=== PATIENT | male | born 1940 | race African-American/Black ===

== ENCOUNTER 2022-01-08 17:45 | Inpatient (IN) ==
[2022-01-09] MEDS ORDERED: SODIUM CHLORIDE 0.9% 1,000 ML IV STA (00:05)
[2022-01-09 01:07] LABS: Basophils # 0.1 10*3/uL (0.0-0.2); Basophils % 0.7 % (0.0-0.8); Eosinophils % 0.6 % (0.00-10.9); Hemoglobin 10.3 GM/DL (14.0-18.0); Immature Granulocytes % 0.4 %; Immature Granulocytes Absolute 0.03 #; Lymphocytes # 1.2 10*3/uL (1.4-4.0); Lymphocytes % 16.5 % (21.2-54.2); Mean Corpuscular HGB Conc 31.2 GM/DL (32-36); Mean Corpuscular Volume 93.2 FL (87-102); Mean Platelet Volume 12.7 FL (9.6-12.0); Monocytes % 7.9 % (1.7-12.7); Neutrophils % 73.9 % (38.7-73.9); Platelet Count 239 T/CUMM (130-400); Red Blood Count 3.54 MC/CUMM (3.8-5.5); Red Cell Distribution Width 14.5 % (9.3-17.3); White Blood Count 7.1 T/CUMM (4-12)
[2022-01-09 01:27] LABS: Alanine Aminotransferase 25 U/L (16-61); Albumin 3.2 G/DL (3.4-5.0); Alkaline Phosphatase 64 U/L (45-117); Aspartate Amino Transferase 21 U/L (0-37); Blood Urea Nitrogen 26 MG/DL (7-18); Calcium 9.5 MG/DL (8.5-10.1); Carbon Dioxide 24 MMOL/L (21-32); Estimated Glom Filtration Rate 47 ML/MIN; Glucose 180 MG/DL (74-106); Osmolality,Calculated 284.7 MOS/KG (273-304); Potassium 4.5 MMOL/L (3.5-5.1); Sodium 138 MMOL/L (136-145); Total Protein 7.6 G/DL (6.4-8.2)
[2022-01-09 01:51] LABS: Platelet Estimate Adequate; Schistocytes 1+
[2022-01-09 02:09] LABS: Bilirubin,Urine Negative (Negative); Blood, Urine Moderate mg/dL (Negative); Glucose,Urine (UA) Negative (Negative); Ketones,Urine Negative (Negative); Mucus,Urine Occasional /LPF (Occasional); Nitrite,Urine Negative (Negative); Protein,Urine 100 MG/DL; RBC,Urine 12 /HPF (0-4); Squamous Epithelial Cell,Urine Occasional /HPF (0-10); Urine Appearance CLEAR (Clear); Urine Color Yellow (Yellow); Urine Specific Gravity 1.017 (1.001-1.035)
[2022-01-09 02:17] LABS: Barbiturates Screen,Urine Negative (Negative); Benzodiazepines Screen,Urine Negative (Negative); Cannabinoid Screen,Urine Negative (Negative); Opiate Screen,Urine Negative (Negative); Phencyclidine Screen,Urine Negative (Negative)
[2022-01-09] MEDS ORDERED: ONDANSETRON 4 MG/2 ML VIAL IV PRN (06:13)
[2022-01-09] MEDS ORDERED: ZALEPLON 5 MG CAPSULE PO PRN (08:10)
[2022-01-09] MEDS ORDERED: MAGNESIUM HYDROXIDE SUSP 30 ML UDCUP PO PRN (08:12)
[2022-01-09] MEDS: DOCUSATE SODIUM 100 MG CAPSULE PO SCH ×2 (08:42→22:11)
[2022-01-09] MEDS: PANTOPRAZOLE 40 MG TABLET PO SCH (08:42)
[2022-01-09] MEDS: QUEtiapine 25 MG TABLET PO SCH ×2 (08:44→22:11)
[2022-01-09] MEDS: ENALAPRIL 20 MG TABLET PO SCH (08:44)
[2022-01-09] MEDS: SODIUM CHLORIDE 0.9% 1,000 ML IV SCH ×2 (10:23→22:11)
[2022-01-09] MEDS: INSULIN LISPRO 100 UNIT/ML SUBCUT SCH ×3 (13:53→22:45)
[2022-01-09] MEDS ORDERED: LORazepam 2 MG/1 ML VIAL IV PRN (16:59)
[2022-01-09] MEDS ORDERED: HALOPERIDOL 5 MG/ML AMP IM PRN (16:59)
[2022-01-09] MEDS ORDERED: LORazepam 2 MG/1 ML VIAL IV ONE (20:00)
[2022-01-09] MEDS ORDERED: HALOPERIDOL 5 MG/ML AMP IM ONE (21:00)
[2022-01-09] MEDS: SIMVASTATIN 20 MG TABLET PO SCH (22:11)
[2022-01-10 06:04] LABS: Basophils % 0.4 % (0.0-0.8); Eosinophils # 0.2 10*3/uL (0.0-0.87); Eosinophils % 2.7 % (0.00-10.9); Immature Granulocytes % 0.3 %; Immature Granulocytes Absolute 0.02 #; Lymphocytes # 1.1 10*3/uL (1.4-4.0); Lymphocytes % 15.4 % (21.2-54.2); Mean Corpuscular HGB Conc 31.9 GM/DL (32-36); Mean Corpuscular Volume 91.5 FL (87-102); Monocytes % 9.8 % (1.7-12.7); Neutrophils % 71.4 % (38.7-73.9); Red Blood Count 2.84 MC/CUMM (3.8-5.5); Red Cell Distribution Width 14.5 % (9.3-17.3); White Blood Count 7.2 T/CUMM (4-12)
[2022-01-10 06:06] LABS: Hemoglobin 8.3 GM/DL (14.0-18.0); Platelet Count 175 T/CUMM (130-400)
[2022-01-10 06:18] LABS: Albumin 2.2 G/DL (3.4-5.0); Bilirubin,Total 2.4 MG/DL (0.20-1.00); Calcium 8.2 MG/DL (8.5-10.1); Free T4 (Free Thyroxine) 1.17 NG/DL (0.76-1.46); Potassium 4.5 MMOL/L (3.5-5.1); Thyroid Stimulating Hormone 2.79 uIU/ml (0.358-3.74); Total Protein 5.6 G/DL (6.4-8.2)
[2022-01-10 08:10] LABS: INR 1.1; PT Patient Result 11.8 SECS (10.5-12.0)
[2022-01-10] MEDS: PANTOPRAZOLE 40 MG TABLET PO SCH (08:39)
[2022-01-10] MEDS: ACETAMINOPHEN 325 MG TABLET PO PRN ×2 (08:39→21:17)
[2022-01-10] MEDS: DOCUSATE SODIUM 100 MG CAPSULE PO SCH ×2 (08:39→21:16)
[2022-01-10] MEDS: QUEtiapine 25 MG TABLET PO SCH ×2 (08:39→21:16)
[2022-01-10] MEDS: ENALAPRIL 20 MG TABLET PO SCH (08:40)
[2022-01-10] MEDS: INSULIN LISPRO 100 UNIT/ML SUBCUT SCH ×4 (08:40→20:35)
[2022-01-10] MEDS: MAGNESIUM SULF INJ 2 GM in SODIUM CHLORIDE 0.9% 1,000 ML IV SCH ×2 (12:37→21:16)
[2022-01-10 16:48] LABS: Lymphocytes,CSF 42 %; Monocytes,CSF 58 %
[2022-01-10 16:51] LABS: Red Blood Cell,CSF 5 C/CUMM
[2022-01-10 16:52] LABS: Appearance,CSF Clear; Glucose,CSF 90 MG/DL (40-70); White Blood Cell,CSF 5 C/CUMM
[2022-01-10] MEDS: SIMVASTATIN 20 MG TABLET PO SCH (21:16)
[2022-01-11 08:23] LABS: Basophils % 0.2 % (0.0-0.8); Eosinophils % 0.2 % (0.00-10.9); Hematocrit 28.8 VOL% (42.0-52.0); Hemoglobin 9.1 GM/DL (14.0-18.0); Immature Granulocytes % 1.2 %; Immature Granulocytes Absolute 0.22 #; Lymphocytes # 0.7 10*3/uL (1.4-4.0); Lymphocytes % 3.9 % (21.2-54.2); Mean Corpuscular HGB Conc 31.6 GM/DL (32-36); Mean Corpuscular Volume 91.7 FL (87-102); Neutrophils % 88.5 % (38.7-73.9); Platelet Count 214 T/CUMM (130-400); Red Blood Count 3.14 MC/CUMM (3.8-5.5); Red Cell Distribution Width 14.6 % (9.3-17.3); White Blood Count 18.1 T/CUMM (4-12)
[2022-01-11 08:45] LABS: Eosinophils 2 % (0-10); Hypochromia 1+; Lymphocytes 2 % (20-55); Microcytosis 1+; Platelet Estimate Adequate; Segmented Neutrophils 90 % (50-85); Total Cells Counted 100
[2022-01-11 08:55] LABS: Albumin 2.6 G/DL (3.4-5.0); Bilirubin,Total 0.6 MG/DL (0.20-1.00); Calcium 8.8 MG/DL (8.5-10.1); Osmolality,Calculated 284.8 MOS/KG (273-304); Potassium 4.3 MMOL/L (3.5-5.1)
[2022-01-11] MEDS: ACETAMINOPHEN 325 MG TABLET PO PRN (09:16)
[2022-01-11] MEDS: PANTOPRAZOLE 40 MG TABLET PO SCH (09:17)
[2022-01-11] MEDS: ENALAPRIL 20 MG TABLET PO SCH (09:17)
[2022-01-11] MEDS: QUEtiapine 25 MG TABLET PO SCH (09:17)
[2022-01-11] MEDS: INSULIN LISPRO 100 UNIT/ML SUBCUT SCH ×4 (09:18→21:23)
[2022-01-11] MEDS: DOCUSATE SODIUM 100 MG CAPSULE PO SCH ×2 (09:18→21:23)
[2022-01-11] MEDS: MAGNESIUM SULF INJ 2 GM in SODIUM CHLORIDE 0.9% 1,000 ML IV SCH ×2 (17:25→17:27)
[2022-01-11] MEDS: risperiDONE 0.5 MG TABLET PO SCH (21:23)
[2022-01-11] MEDS: SIMVASTATIN 20 MG TABLET PO SCH (21:23)
[2022-01-12] MEDS: MAGNESIUM SULF INJ 2 GM in SODIUM CHLORIDE 0.9% 1,000 ML IV SCH ×3 (01:12→23:22)
[2022-01-12] MEDS: DOCUSATE SODIUM 100 MG CAPSULE PO SCH ×2 (09:27→20:29)
[2022-01-12] MEDS: PANTOPRAZOLE 40 MG TABLET PO SCH (09:27)
[2022-01-12] MEDS: INSULIN LISPRO 100 UNIT/ML SUBCUT SCH ×4 (09:39→20:30)
[2022-01-12] MEDS ORDERED: SODIUM CHLORIDE 0.9% 500 ML IV ONE (12:09)
[2022-01-12] MEDS: risperiDONE 0.5 MG TABLET PO SCH (12:49)
[2022-01-12] MEDS: SIMVASTATIN 20 MG TABLET PO SCH (20:29)
[2022-01-13 06:32] LABS: Basophils % 0.2 % (0.0-0.8); Eosinophils # 0.1 10*3/uL (0.0-0.87); Eosinophils % 1.1 % (0.00-10.9); Hematocrit 26.9 VOL% (42.0-52.0); Hemoglobin 8.3 GM/DL (14.0-18.0); Immature Granulocytes % 0.6 %; Immature Granulocytes Absolute 0.06 #; Lymphocytes # 0.6 10*3/uL (1.4-4.0); Lymphocytes % 5.7 % (21.2-54.2); Mean Corpuscular HGB Conc 30.9 GM/DL (32-36); Mean Corpuscular Volume 91.8 FL (87-102); Mean Platelet Volume 13.9 FL (9.6-12.0); Monocytes % 9.2 % (1.7-12.7); Neutrophils % 83.2 % (38.7-73.9); Red Blood Count 2.93 MC/CUMM (3.8-5.5); Red Cell Distribution Width 14.6 % (9.3-17.3)
[2022-01-13 06:42] LABS: Platelet Count 165 T/CUMM (130-400); White Blood Count 10.2 T/CUMM (4-12)
[2022-01-13 06:43] LABS: Albumin 2.1 G/DL (3.4-5.0); Bilirubin,Total 1.7 MG/DL (0.20-1.00); Calcium 8.7 MG/DL (8.5-10.1); Osmolality,Calculated 294.4 MOS/KG (273-304); Potassium 4.5 MMOL/L (3.5-5.1); Total Protein 6.2 G/DL (6.4-8.2)
[2022-01-13] MEDS: INSULIN LISPRO 100 UNIT/ML SUBCUT SCH ×4 (08:51→20:22)
[2022-01-13] MEDS: PANTOPRAZOLE 40 MG TABLET PO SCH (08:52)
[2022-01-13] MEDS: DOCUSATE SODIUM 100 MG CAPSULE PO SCH ×2 (08:52→20:15)
[2022-01-13] MEDS: MAGNESIUM SULF INJ 2 GM in SODIUM CHLORIDE 0.9% 1,000 ML IV SCH ×2 (08:55→20:15)
[2022-01-13] MEDS: ENALAPRIL 20 MG TABLET PO SCH (09:18)
[2022-01-13] MEDS: risperiDONE 0.5 MG TABLET PO SCH ×2 (09:19→20:15)
[2022-01-13] MEDS: SIMVASTATIN 20 MG TABLET PO SCH (20:15)
[2022-01-14] MEDS: MAGNESIUM SULF INJ 2 GM in SODIUM CHLORIDE 0.9% 1,000 ML IV SCH (05:22)
[2022-01-14] MEDS: INSULIN LISPRO 100 UNIT/ML SUBCUT SCH ×4 (09:07→21:53)
[2022-01-14] MEDS: risperiDONE 0.5 MG TABLET PO SCH ×2 (09:07→21:52)
[2022-01-14] MEDS: PANTOPRAZOLE 40 MG TABLET PO SCH (09:07)
[2022-01-14] MEDS: ENALAPRIL 20 MG TABLET PO SCH (09:07)
[2022-01-14] MEDS: DOCUSATE SODIUM 100 MG CAPSULE PO SCH ×2 (09:07→21:53)
[2022-01-14 12:26] LABS: VDRL Spinal Fluid Negative (Negative)
[2022-01-14 13:31] LABS: West Nile Virus Ab, IgG, CSF Negative (Negative); West Nile Virus Ab, IgM, CSF Negative (Negative)
[2022-01-14] MEDS: SODIUM CHLORIDE 0.9% 1,000 ML IV SCH (13:54)
[2022-01-14] MEDS: SIMVASTATIN 20 MG TABLET PO SCH (21:52)
[2022-01-14] MEDS: APIXABAN 2.5 MG TABLET PO SCH (21:52)
[2022-01-15] MEDS: SODIUM CHLORIDE 0.9% 1,000 ML IV SCH (02:20)
[2022-01-15 06:19] LABS: Basophils % 0.3 % (0.0-0.8); Eosinophils # 0.1 10*3/uL (0.0-0.87); Eosinophils % 0.9 % (0.00-10.9); Hematocrit 25.9 VOL% (42.0-52.0); Hemoglobin 8.1 GM/DL (14.0-18.0); Immature Granulocytes % 0.7 %; Immature Granulocytes Absolute 0.05 #; Lymphocytes # 0.4 10*3/uL (1.4-4.0); Lymphocytes % 5.8 % (21.2-54.2); Mean Corpuscular HGB Conc 31.3 GM/DL (32-36); Mean Corpuscular Volume 91.2 FL (87-102); Mean Platelet Volume 13.6 FL (9.6-12.0); Monocytes % 10.7 % (1.7-12.7); Neutrophils % 81.6 % (38.7-73.9); Platelet Count 151 T/CUMM (130-400); Red Blood Count 2.84 MC/CUMM (3.8-5.5); Red Cell Distribution Width 14.6 % (9.3-17.3); White Blood Count 6.8 T/CUMM (4-12)
[2022-01-15 06:22] LABS: Bilirubin,Total 0.4 MG/DL (0.20-1.00); Calcium 8.7 MG/DL (8.5-10.1); Osmolality,Calculated 291.4 MOS/KG (273-304); Potassium 4.9 MMOL/L (3.5-5.1); Total Protein 6.3 G/DL (6.4-8.2)
[2022-01-15] MEDS: APIXABAN 2.5 MG TABLET PO SCH ×2 (09:33→20:25)
[2022-01-15] MEDS: DOCUSATE SODIUM 100 MG CAPSULE PO SCH ×2 (09:33→20:25)
[2022-01-15] MEDS: PANTOPRAZOLE 40 MG TABLET PO SCH (09:33)
[2022-01-15] MEDS: INSULIN LISPRO 100 UNIT/ML SUBCUT SCH ×4 (09:34→20:26)
[2022-01-15] MEDS: amLODIPine 5 MG TABLET PO SCH (09:34)
[2022-01-15] MEDS: SODIUM CHLORIDE 23.4% CONC INJ 38.5 MEQ, SODIUM BICARB INJ 100 MEQ in STERILE WATER INJ... IV SCH (12:57)
[2022-01-15] MEDS: ACETAMINOPHEN 325 MG TABLET PO PRN (16:40)
[2022-01-15] MEDS: SIMVASTATIN 20 MG TABLET PO SCH (20:25)
[2022-01-16 06:16] LABS: Basophils % 0.3 % (0.0-0.8); Eosinophils % 0.5 % (0.00-10.9); Hematocrit 28.1 VOL% (42.0-52.0); Hemoglobin 8.5 GM/DL (14.0-18.0); Immature Granulocytes % 1.1 %; Immature Granulocytes Absolute 0.07 #; Lymphocytes # 0.4 10*3/uL (1.4-4.0); Mean Corpuscular HGB Conc 30.2 GM/DL (32-36); Mean Platelet Volume 13.4 FL (9.6-12.0); Monocytes % 5.7 % (1.7-12.7); Neutrophils % 85.4 % (38.7-73.9); Platelet Count 108 T/CUMM (130-400); Red Blood Count 2.99 MC/CUMM (3.8-5.5); Red Cell Distribution Width 14.9 % (9.3-17.3); White Blood Count 6.2 T/CUMM (4-12)
[2022-01-16 06:29] LABS: Albumin 1.7 G/DL (3.4-5.0); Bilirubin,Total 0.4 MG/DL (0.20-1.00); Calcium 8.5 MG/DL (8.5-10.1); Osmolality,Calculated 288.8 MOS/KG (273-304); Potassium 5.6 MMOL/L (3.5-5.1); Total Protein 6.2 G/DL (6.4-8.2)
[2022-01-16] MEDS: amLODIPine 5 MG TABLET PO SCH (09:27)
[2022-01-16] MEDS: DOCUSATE SODIUM 100 MG CAPSULE PO SCH ×2 (09:27→20:45)
[2022-01-16] MEDS: APIXABAN 2.5 MG TABLET PO SCH ×2 (09:27→20:45)
[2022-01-16] MEDS: INSULIN LISPRO 100 UNIT/ML SUBCUT SCH ×4 (09:27→20:46)
[2022-01-16] MEDS: PANTOPRAZOLE 40 MG TABLET PO SCH (09:27)
[2022-01-16] MEDS: SODIUM CHLORIDE 0.9% 1,000 ML IV SCH (14:48)
[2022-01-16] MEDS: SODIUM CHLORIDE 23.4% CONC INJ 38.5 MEQ, SODIUM BICARB INJ 100 MEQ in STERILE WATER INJ... IV SCH (14:49)
[2022-01-16] MEDS: SODIUM BICARB INJ 150 MEQ in DEXTROSE 5% 850 ML IV SCH (16:36)
[2022-01-16] MEDS: ACETAMINOPHEN 325 MG TABLET PO PRN (20:45)
[2022-01-16] MEDS: TAMSULOSIN 0.4 MG CAPSULE PO SCH (20:45)
[2022-01-16] MEDS: SIMVASTATIN 20 MG TABLET PO SCH (20:45)
[2022-01-17 05:25] LABS: Basophils % 0.2 % (0.0-0.8); Eosinophils % 0.1 % (0.00-10.9); Hematocrit 22.3 VOL% (42.0-52.0); Hemoglobin 7.4 GM/DL (14.0-18.0); Immature Granulocytes % 0.6 %; Immature Granulocytes Absolute 0.07 #; Lymphocytes # 0.1 10*3/uL (1.4-4.0); Lymphocytes % 1.1 % (21.2-54.2); Mean Corpuscular HGB Conc 33.2 GM/DL (32-36); Mean Corpuscular Volume 85.8 FL (87-102); Mean Platelet Volume 13.3 FL (9.6-12.0); Monocytes % 2.7 % (1.7-12.7); Neutrophils % 95.3 % (38.7-73.9); Platelet Count 132 T/CUMM (130-400); Red Cell Distribution Width 14.5 % (9.3-17.3); White Blood Count 11.5 T/CUMM (4-12)
[2022-01-17 05:38] LABS: Calcium 7.8 MG/DL (8.5-10.1); Osmolality,Calculated 296.1 MOS/KG (273-304); Potassium 4.7 MMOL/L (3.5-5.1)
[2022-01-17 06:03] LABS: Band Neutrophils 9 % (0-10); Hypochromia Slight; Lymphocytes 1 % (20-55); Microcytosis Slight; Ovalocytes Slight; Platelet Estimate Adequate; Segmented Neutrophils 88 % (50-85); Total Cells Counted 100
[2022-01-17 08:06] LABS: Bacteria,Urine Many /HPF (Few); Mucus,Urine Occasional /LPF (Occasional); RBC,Urine 35 /HPF (0-4); Squamous Epithelial Cell,Urine Occasional /HPF (0-10)
[2022-01-17 08:07] LABS: Bilirubin,Urine Negative (Negative); Glucose,Urine (UA) Negative (Negative); Ketones,Urine Negative (Negative); Nitrite,Urine Negative (Negative); Protein,Urine 30 MG/DL; Urine Appearance Clear (Clear); Urine Color Yellow (Yellow); Urine Specific Gravity 1.015 (1.001-1.035)
[2022-01-17 08:08] LABS: Blood, Urine Large mg/dL (Negative); Urine Urobilinogen 0.2 EU/DL (<2.0)
[2022-01-17] MEDS: amLODIPine 5 MG TABLET PO SCH (09:16)
[2022-01-17] MEDS: INSULIN LISPRO 100 UNIT/ML SUBCUT SCH ×4 (09:16→21:10)
[2022-01-17] MEDS: DOCUSATE SODIUM 100 MG CAPSULE PO SCH ×2 (09:16→21:08)
[2022-01-17] MEDS: PANTOPRAZOLE 40 MG TABLET PO SCH (09:16)
[2022-01-17] MEDS: APIXABAN 2.5 MG TABLET PO SCH ×2 (09:16→21:08)
[2022-01-17] MEDS: SODIUM BICARB INJ 150 MEQ in DEXTROSE 5% 850 ML IV SCH (17:40)
[2022-01-17] MEDS: SIMVASTATIN 20 MG TABLET PO SCH (21:08)
[2022-01-17] MEDS: TAMSULOSIN 0.4 MG CAPSULE PO SCH (21:08)
[2022-01-17] MEDS ORDERED: cefTRIAXone 1,000 MG in SODIUM CHLORIDE 0.9% 100 ML IV ONE (23:45)
[2022-01-18 01:01] LABS: Basophils % 0.1 % (0.0-0.8); Eosinophils % 0.1 % (0.00-10.9); Hematocrit 23.6 VOL% (42.0-52.0); Hemoglobin 7.6 GM/DL (14.0-18.0); Immature Granulocytes % 1.1 %; Immature Granulocytes Absolute 0.19 #; Lymphocytes # 0.2 10*3/uL (1.4-4.0); Lymphocytes % 1.1 % (21.2-54.2); Mean Corpuscular HGB Conc 32.2 GM/DL (32-36); Mean Corpuscular Volume 88.7 FL (87-102); Mean Platelet Volume 13.3 FL (9.6-12.0); Monocytes % 2.5 % (1.7-12.7); Neutrophils % 95.1 % (38.7-73.9); Platelet Count 129 T/CUMM (130-400); Red Blood Count 2.66 MC/CUMM (3.8-5.5); Red Cell Distribution Width 14.6 % (9.3-17.3); White Blood Count 16.7 T/CUMM (4-12)
[2022-01-18 01:17] LABS: Calcium 8.3 MG/DL (8.5-10.1); Osmolality,Calculated 297.2 MOS/KG (273-304); Potassium 4.6 MMOL/L (3.5-5.1)
[2022-01-18 02:06] LABS: Lymphocytes 4 % (20-55); Platelet Estimate Adequate; Segmented Neutrophils 93 % (50-85); Total Cells Counted 100
[2022-01-18] MEDS: INSULIN LISPRO 100 UNIT/ML SUBCUT SCH ×4 (09:50→20:46)
[2022-01-18] MEDS: SODIUM BICARB INJ 150 MEQ in DEXTROSE 5% 850 ML IV SCH ×2 (09:50→20:50)
[2022-01-18] MEDS: amLODIPine 5 MG TABLET PO SCH (09:50)
[2022-01-18] MEDS: APIXABAN 2.5 MG TABLET PO SCH ×2 (09:50→20:46)
[2022-01-18] MEDS: PANTOPRAZOLE 40 MG TABLET PO SCH (09:50)
[2022-01-18] MEDS: DOCUSATE SODIUM 100 MG CAPSULE PO SCH ×2 (09:50→20:46)
[2022-01-18] MEDS: ACETAMINOPHEN 325 MG TABLET PO PRN ×3 (17:28→23:45)
[2022-01-18] MEDS: TAMSULOSIN 0.4 MG CAPSULE PO SCH (20:45)
[2022-01-18] MEDS: SIMVASTATIN 20 MG TABLET PO SCH (20:46)
[2022-01-18] MEDS ORDERED: cefTRIAXone 1,000 MG in SODIUM CHLORIDE 0.9% 100 ML IV SCH (21:00)
[2022-01-19] MEDS: ALBUMIN 25% 25 GM/100 ML VIAL IV SCH ×3 (02:00→18:10)
[2022-01-19] MEDS: METOPROLOL TARTRATE 25 MG TABLET PO SCH ×3 (02:00→21:57)
[2022-01-19] MEDS: SODIUM BICARB INJ 150 MEQ in DEXTROSE 5% 850 ML IV SCH ×2 (04:29→18:11)
[2022-01-19 05:48] LABS: Basophils % 0.2 % (0.0-0.8); Eosinophils % 0.2 % (0.00-10.9); Hematocrit 21.4 VOL% (42.0-52.0); Hemoglobin 7.1 GM/DL (14.0-18.0); Immature Granulocytes % 1.3 %; Immature Granulocytes Absolute 0.24 #; Lymphocytes # 0.4 10*3/uL (1.4-4.0); Lymphocytes % 2.4 % (21.2-54.2); Mean Corpuscular HGB Conc 33.2 GM/DL (32-36); Mean Corpuscular Volume 86.6 FL (87-102); Monocytes % 5.4 % (1.7-12.7); Neutrophils % 90.5 % (38.7-73.9); Platelet Count 94 T/CUMM (130-400); Red Blood Count 2.47 MC/CUMM (3.8-5.5); Red Cell Distribution Width 14.4 % (9.3-17.3)
[2022-01-19 06:08] LABS: Calcium 7.4 MG/DL (8.5-10.1); Osmolality,Calculated 288.7 MOS/KG (273-304); Potassium 4.3 MMOL/L (3.5-5.1)
[2022-01-19 06:39] LABS: Hypochromia 1+; Lymphocytes 2 % (20-55); Platelet Estimate Decreased; Segmented Neutrophils 95 % (50-85); Total Cells Counted 100
[2022-01-19 07:49] LABS: Albumin 1.1 G/DL (3.4-5.0); Bilirubin,Direct 0.19 MG/DL (0.0-0.20); Bilirubin,Indirect 0.4 MG/DL (0.0-1.0); Bilirubin,Total 0.6 MG/DL (0.20-1.00); Total Protein 4.9 G/DL (6.4-8.2)
[2022-01-19] MEDS: DOCUSATE SODIUM 100 MG CAPSULE PO SCH ×2 (08:30→23:19)
[2022-01-19] MEDS: FERROUS SULFATE 325 MG TABLET PO SCH ×2 (08:30→21:56)
[2022-01-19] MEDS: INSULIN LISPRO 100 UNIT/ML SUBCUT SCH ×4 (08:30→21:56)
[2022-01-19] MEDS: PANTOPRAZOLE 40 MG TABLET PO SCH (08:30)
[2022-01-19] MEDS: APIXABAN 2.5 MG TABLET PO SCH ×2 (08:30→21:56)
[2022-01-19] MEDS ORDERED: SODIUM CHLORIDE 0.9% 1,000 ML IV PRN (11:46)
[2022-01-19] MEDS ORDERED: FUROSEMIDE 20 MG/2 ML VIAL IV PRN (11:58)
[2022-01-19] MEDS: MEROPENEM 500 MG in SODIUM CHLORIDE 0.9% 100 ML IV SCH ×2 (12:30→21:29)
[2022-01-19] MEDS: INSULIN GLARGINE 100 UNIT/ML SUBCUT SCH (13:34)
[2022-01-19] MEDS: TAMSULOSIN 0.4 MG CAPSULE PO SCH (21:56)
[2022-01-19] MEDS: SIMVASTATIN 20 MG TABLET PO SCH (21:56)
[2022-01-19] MEDS: ACETAMINOPHEN 325 MG TABLET PO PRN (21:56)
[2022-01-20] MEDS: ALBUMIN 25% 25 GM/100 ML VIAL IV SCH ×3 (02:55→17:31)
[2022-01-20] MEDS: MEROPENEM 500 MG in SODIUM CHLORIDE 0.9% 100 ML IV SCH ×3 (04:03→22:16)
[2022-01-20 06:13] LABS: Basophils % 0.1 % (0.0-0.8); Eosinophils # 0.1 10*3/uL (0.0-0.87); Eosinophils % 0.5 % (0.00-10.9); Hematocrit 19.8 VOL% (42.0-52.0); Hemoglobin 6.8 GM/DL (14.0-18.0); Immature Granulocytes % 1.5 %; Immature Granulocytes Absolute 0.26 #; Lymphocytes # 0.7 10*3/uL (1.4-4.0); Lymphocytes % 4.1 % (21.2-54.2); Mean Corpuscular HGB Conc 34.3 GM/DL (32-36); Mean Corpuscular Volume 83.9 FL (87-102); Mean Platelet Volume 14.1 FL (9.6-12.0); Monocytes % 7.7 % (1.7-12.7); Neutrophils % 86.1 % (38.7-73.9); Platelet Count 133 T/CUMM (130-400); Red Blood Count 2.36 MC/CUMM (3.8-5.5); Red Cell Distribution Width 14.2 % (9.3-17.3); White Blood Count 17.2 T/CUMM (4-12)
[2022-01-20 06:55] LABS: Calcium 8.6 MG/DL (8.5-10.1); Osmolality,Calculated 288.7 MOS/KG (273-304); Potassium 3.9 MMOL/L (3.5-5.1)
[2022-01-20 06:58] LABS: Albumin 2.1 G/DL (3.4-5.0); Bilirubin,Direct 0.36 MG/DL (0.0-0.20); Bilirubin,Indirect 0.4 MG/DL (0.0-1.0); Bilirubin,Total 0.8 MG/DL (0.20-1.00); Total Protein 5.6 G/DL (6.4-8.2)
[2022-01-20] MEDS: SODIUM BICARB INJ 150 MEQ in DEXTROSE 5% 850 ML IV SCH (08:00)
[2022-01-20 08:02] LABS: Lymphocytes 5 % (20-55); Segmented Neutrophils 90 % (50-85); Total Cells Counted 100
[2022-01-20 08:03] LABS: Anisocytosis 1+; Hypochromia 3+; Platelet Estimate Adequate; Polychromasia Slight; Schistocytes Few; Target Cells 1+
[2022-01-20 08:04] LABS: Ovalocytes Few
[2022-01-20] MEDS: DOCUSATE SODIUM 100 MG CAPSULE PO SCH ×2 (09:01→22:17)
[2022-01-20] MEDS: INSULIN LISPRO 100 UNIT/ML SUBCUT SCH ×4 (09:02→22:16)
[2022-01-20] MEDS: METOPROLOL TARTRATE 25 MG TABLET PO SCH ×2 (09:02→22:18)
[2022-01-20] MEDS: FERROUS SULFATE 325 MG TABLET PO SCH ×2 (09:02→22:17)
[2022-01-20] MEDS: APIXABAN 2.5 MG TABLET PO SCH ×2 (09:02→22:18)
[2022-01-20] MEDS: PANTOPRAZOLE 40 MG TABLET PO SCH (09:02)
[2022-01-20] MEDS: INSULIN GLARGINE 100 UNIT/ML SUBCUT SCH (09:02)
[2022-01-20] MEDS ORDERED: SODIUM BICARB INJ 150 MEQ in DEXTROSE 5% 1,000 ML IV SCH (21:00)
[2022-01-20] MEDS: ACETAMINOPHEN 325 MG TABLET PO PRN (22:17)
[2022-01-20] MEDS: TAMSULOSIN 0.4 MG CAPSULE PO SCH (22:17)
[2022-01-20] MEDS: SIMVASTATIN 20 MG TABLET PO SCH (22:17)
[2022-01-21] MEDS: ALBUMIN 25% 25 GM/100 ML VIAL IV SCH ×3 (00:16→16:24)
[2022-01-21] MEDS: INSULIN LISPRO 100 UNIT/ML SUBCUT SCH ×4 (04:24→19:09)
[2022-01-21] MEDS: MEROPENEM 500 MG in SODIUM CHLORIDE 0.9% 100 ML IV SCH ×3 (04:25→20:07)
[2022-01-21] MEDS: SODIUM CHLORIDE 0.9% 1,000 ML IV SCH ×2 (04:27→15:07)
[2022-01-21 05:46] LABS: Basophils % 0.1 % (0.0-0.8); Hematocrit 25.8 VOL% (42.0-52.0); Hemoglobin 8.4 GM/DL (14.0-18.0); Immature Granulocytes % 3.2 %; Immature Granulocytes Absolute 0.67 #; Lymphocytes # 0.5 10*3/uL (1.4-4.0); Lymphocytes % 2.4 % (21.2-54.2); Mean Corpuscular HGB Conc 32.6 GM/DL (32-36); Mean Corpuscular Volume 87.5 FL (87-102); Mean Platelet Volume 14.5 FL (9.6-12.0); Monocytes % 7.5 % (1.7-12.7); Neutrophils % 86.8 % (38.7-73.9); Platelet Count 124 T/CUMM (130-400); Red Blood Count 2.95 MC/CUMM (3.8-5.5); Red Cell Distribution Width 14.5 % (9.3-17.3); White Blood Count 20.8 T/CUMM (4-12)
[2022-01-21 05:59] LABS: Albumin 2.9 G/DL (3.4-5.0); Bilirubin,Total 1.1 MG/DL (0.20-1.00); Calcium 8.7 MG/DL (8.5-10.1); Osmolality,Calculated 299.7 MOS/KG (273-304); Potassium 4.1 MMOL/L (3.5-5.1); Total Protein 6.2 G/DL (6.4-8.2)
[2022-01-21 06:13] LABS: Band Neutrophils 1 % (0-10); Hypochromia 2+; Lymphocytes 1 % (20-55); Segmented Neutrophils 93 % (50-85); Total Cells Counted 100
[2022-01-21 06:14] LABS: Microcytosis 1+; Ovalocytes Slight; Platelet Estimate Adequate; Target Cells Slight
[2022-01-21 06:20] LABS: Albumin 2.8 G/DL (3.4-5.0); Bilirubin,Direct 0.71 MG/DL (0.0-0.20); Bilirubin,Indirect 0.4 MG/DL (0.0-1.0); Bilirubin,Total 1.1 MG/DL (0.20-1.00); Total Protein 6.2 G/DL (6.4-8.2)
[2022-01-21] MEDS: INSULIN GLARGINE 100 UNIT/ML SUBCUT SCH (08:55)
[2022-01-21] MEDS: METOPROLOL TARTRATE 25 MG TABLET PO SCH ×2 (08:59→20:07)
[2022-01-21] MEDS: FERROUS SULFATE 325 MG TABLET PO SCH ×2 (08:59→20:07)
[2022-01-21] MEDS: PANTOPRAZOLE 40 MG TABLET PO SCH (08:59)
[2022-01-21] MEDS: DOCUSATE SODIUM 100 MG CAPSULE PO SCH ×2 (08:59→20:07)
[2022-01-21] MEDS: APIXABAN 2.5 MG TABLET PO SCH ×2 (08:59→20:07)
[2022-01-21] MEDS ORDERED: SUCCINYLCHOLINE 200 MG/10 ML VIAL ONE (12:54)
[2022-01-21] MEDS ORDERED: ETOMIDATE 20 MG/10 ML VIAL IV ONE ×2 (12:54→12:58)
[2022-01-21] MEDS ORDERED: SUCCINYLCHOLINE 200 MG/10 ML VIAL IV ONE (12:58)
[2022-01-21] MEDS ORDERED: SODIUM CHLORIDE 0.9% 1,000 ML IV ONE ×2 (13:03→14:21)
[2022-01-21] MEDS: MIDAZOLAM 100 MG in SODIUM CHLORIDE 0.9% 80 ML IV PRN (13:05)
[2022-01-21 14:00] LABS: ABG Base Excess 0.4 MMOL/L (-2.5-2.5); ABG HCO3 24.8 MMOL/L (20-26); ABG Oxygen Saturation 98.9 % (95-100); ABG PCO2 63.1 MM HG (35-48); ABG PH 7.262 (7.35-7.45); ABG TCO2 26.8 MMOL/L (23-27)
[2022-01-21] MEDS: SODIUM BICARB INJ 150 MEQ in DEXTROSE 5% 850 ML IV SCH (19:09)
[2022-01-21] MEDS: SIMVASTATIN 20 MG TABLET PO SCH (20:07)
[2022-01-21] MEDS: TAMSULOSIN 0.4 MG CAPSULE PO SCH (20:07)
[2022-01-21] MEDS: DEXTROSE 10% 250 ML IV PRN (20:08)
[2022-01-22] MEDS: SODIUM CHLORIDE 0.9% 1,000 ML IV SCH (00:04)
[2022-01-22] MEDS: INSULIN LISPRO 100 UNIT/ML SUBCUT SCH ×5 (00:04→23:51)
[2022-01-22] MEDS: ALBUMIN 25% 25 GM/100 ML VIAL IV SCH ×3 (00:21→17:10)
[2022-01-22] MEDS: DEXTROSE 5% NACL 0.9% 1,000 ML IV SCH ×3 (03:50→19:36)
[2022-01-22 04:12] LABS: ABG Base Excess 4.1 MMOL/L (-2.5-2.5); ABG HCO3 28.1 MMOL/L (20-26); ABG Oxygen Saturation 99.5 % (95-100); ABG PCO2 34.9 MM HG (35-48); ABG PH 7.502 (7.35-7.45); ABG TCO2 25.6 MMOL/L (23-27)
[2022-01-22 04:21] LABS: Basophils % 0.1 % (0.0-0.8); Eosinophils # 0.1 10*3/uL (0.0-0.87); Eosinophils % 0.4 % (0.00-10.9); Hematocrit 21.9 VOL% (42.0-52.0); Hemoglobin 7.2 GM/DL (14.0-18.0); Immature Granulocytes % 1.4 %; Immature Granulocytes Absolute 0.24 #; Lymphocytes # 0.6 10*3/uL (1.4-4.0); Lymphocytes % 3.4 % (21.2-54.2); Mean Corpuscular HGB Conc 32.9 GM/DL (32-36); Mean Corpuscular Volume 85.5 FL (87-102); Mean Platelet Volume 13.4 FL (9.6-12.0); Monocytes % 5.9 % (1.7-12.7); Neutrophils % 88.8 % (38.7-73.9); Platelet Count 128 T/CUMM (130-400); Red Blood Count 2.56 MC/CUMM (3.8-5.5); Red Cell Distribution Width 14.5 % (9.3-17.3); White Blood Count 16.9 T/CUMM (4-12)
[2022-01-22 04:32] LABS: Calcium 7.9 MG/DL (8.5-10.1); Osmolality,Calculated 286.4 MOS/KG (273-304); Potassium 4.2 MMOL/L (3.5-5.1)
[2022-01-22] MEDS: DEXTROSE 10% 250 ML IV PRN (04:40)
[2022-01-22 04:41] LABS: Lymphocytes 7 % (20-55); Segmented Neutrophils 90 % (50-85); Total Cells Counted 100
[2022-01-22 04:42] LABS: Hypochromia 1+; Microcytosis 1+; Ovalocytes Slight
[2022-01-22] MEDS: MEROPENEM 500 MG in SODIUM CHLORIDE 0.9% 100 ML IV SCH ×3 (05:03→20:53)
[2022-01-22] MEDS: methylPREDNISolone SOD SUC 40 MG/1 ML VIAL IV SCH ×2 (08:41→19:36)
[2022-01-22] MEDS: DOCUSATE SODIUM 100 MG CAPSULE PO SCH ×2 (08:42→20:53)
[2022-01-22] MEDS: PANTOPRAZOLE 40 MG VIAL IV SCH (08:42)
[2022-01-22] MEDS: FERROUS SULFATE 325 MG TABLET PO SCH ×2 (08:42→20:53)
[2022-01-22] MEDS: APIXABAN 2.5 MG TABLET PO SCH ×2 (08:42→20:53)
[2022-01-22] MEDS: INSULIN GLARGINE 100 UNIT/ML SUBCUT SCH (08:42)
[2022-01-22] MEDS: METOPROLOL TARTRATE 25 MG TABLET PO SCH ×2 (08:43→20:53)
[2022-01-22] MEDS ORDERED: GLUCAGON 1 MG VIAL IM PRN (14:02)
[2022-01-22] MEDS ORDERED: DEXTROSE 50% 25 GM/50 ML VIAL IV PRN (14:02)
[2022-01-22] MEDS: MIDAZOLAM 100 MG in SODIUM CHLORIDE 0.9% 80 ML IV PRN (14:38)
[2022-01-22] MEDS: SKIN HEALING OINT (AQUAPHOR) 50 GM TUBE TOP SCH (16:51)
[2022-01-22] MEDS: TAMSULOSIN 0.4 MG CAPSULE PO SCH (20:53)
[2022-01-22] MEDS: SIMVASTATIN 20 MG TABLET PO SCH (20:54)
[2022-01-22] MEDS: LATANOPROST 0.005% OPH SOLN 2.5 ML BOTTLE BOTH EYES SCH (20:54)
[2022-01-23] MEDS: ALBUMIN 25% 25 GM/100 ML VIAL IV SCH ×3 (01:18→17:17)
[2022-01-23] MEDS: DEXTROSE 5% NACL 0.9% 1,000 ML IV SCH ×3 (03:41→18:50)
[2022-01-23 04:43] LABS: ABG Base Excess 2.3 MMOL/L (-2.5-2.5); ABG HCO3 26.5 MMOL/L (20-26); ABG PCO2 36.8 MM HG (35-48); ABG PH 7.459 (7.35-7.45); ABG TCO2 24.5 MMOL/L (23-27)
[2022-01-23 04:57] LABS: Calcium 8.4 MG/DL (8.5-10.1); Osmolality,Calculated 296.2 MOS/KG (273-304); Potassium 4.2 MMOL/L (3.5-5.1)
[2022-01-23 04:58] LABS: Basophils % 0.1 % (0.0-0.8); Hematocrit 22.5 VOL% (42.0-52.0); Hemoglobin 7.6 GM/DL (14.0-18.0); Immature Granulocytes % 1.5 %; Immature Granulocytes Absolute 0.27 #; Lymphocytes # 0.3 10*3/uL (1.4-4.0); Lymphocytes % 1.7 % (21.2-54.2); Mean Corpuscular HGB Conc 33.8 GM/DL (32-36); Mean Corpuscular Volume 85.2 FL (87-102); Mean Platelet Volume 13.8 FL (9.6-12.0); Monocytes % 2.1 % (1.7-12.7); Neutrophils % 94.6 % (38.7-73.9); Platelet Count 120 T/CUMM (130-400); Red Blood Count 2.64 MC/CUMM (3.8-5.5); Red Cell Distribution Width 14.5 % (9.3-17.3); White Blood Count 18.3 T/CUMM (4-12)
[2022-01-23] MEDS: MEROPENEM 500 MG in SODIUM CHLORIDE 0.9% 100 ML IV SCH ×3 (05:09→20:07)
[2022-01-23 05:23] LABS: Hypochromia 1+; Lymphocytes 1 % (20-55); Microcytosis 1+; Segmented Neutrophils 98 % (50-85); Target Cells Slight; Total Cells Counted 100
[2022-01-23 05:24] LABS: Ovalocytes Slight; Platelet Estimate Adequate
[2022-01-23] MEDS: INSULIN LISPRO 100 UNIT/ML SUBCUT SCH ×3 (05:51→17:23)
[2022-01-23] MEDS: methylPREDNISolone SOD SUC 40 MG/1 ML VIAL IV SCH ×2 (08:34→19:41)
[2022-01-23] MEDS: PANTOPRAZOLE 40 MG VIAL IV SCH (08:35)
[2022-01-23] MEDS: APIXABAN 2.5 MG TABLET PO SCH ×2 (08:35→20:06)
[2022-01-23] MEDS: DOCUSATE SODIUM 100 MG CAPSULE PO SCH ×2 (08:35→20:06)
[2022-01-23] MEDS: FERROUS SULFATE 325 MG TABLET PO SCH ×2 (08:35→20:06)
[2022-01-23] MEDS: METOPROLOL TARTRATE 25 MG TABLET PO SCH ×2 (08:35→20:06)
[2022-01-23] MEDS: SKIN HEALING OINT (AQUAPHOR) 50 GM TUBE TOP SCH (08:35)
[2022-01-23] MEDS: MIDAZOLAM 100 MG in SODIUM CHLORIDE 0.9% 80 ML IV PRN (13:15)
[2022-01-23] MEDS: TAMSULOSIN 0.4 MG CAPSULE PO SCH (20:06)
[2022-01-23] MEDS: SIMVASTATIN 20 MG TABLET PO SCH (20:06)
[2022-01-23] MEDS: LATANOPROST 0.005% OPH SOLN 2.5 ML BOTTLE BOTH EYES SCH (20:06)
[2022-01-24] MEDS: INSULIN LISPRO 100 UNIT/ML SUBCUT SCH ×4 (00:20→18:20)
[2022-01-24] MEDS: ALBUMIN 25% 25 GM/100 ML VIAL IV SCH (00:20)
[2022-01-24] MEDS: DEXTROSE 5% NACL 0.9% 1,000 ML IV SCH (02:52)
[2022-01-24 03:27] LABS: ABG Base Excess 0.6 MMOL/L (-2.5-2.5); ABG Oxygen Saturation 98.5 % (95-100); ABG PCO2 37.6 MM HG (35-48); ABG PH 7.428 (7.35-7.45); ABG TCO2 23.2 MMOL/L (23-27)
[2022-01-24 03:36] LABS: Basophils % 0.1 % (0.0-0.8); Hematocrit 23.7 VOL% (42.0-52.0); Hemoglobin 7.9 GM/DL (14.0-18.0); Immature Granulocytes % 1.7 %; Immature Granulocytes Absolute 0.37 #; Lymphocytes # 0.2 10*3/uL (1.4-4.0); Lymphocytes % 1.1 % (21.2-54.2); Mean Corpuscular HGB Conc 33.3 GM/DL (32-36); Mean Corpuscular Volume 85.3 FL (87-102); Mean Platelet Volume 13.3 FL (9.6-12.0); Monocytes % 2.7 % (1.7-12.7); Neutrophils % 94.4 % (38.7-73.9); Platelet Count 162 T/CUMM (130-400); Red Blood Count 2.78 MC/CUMM (3.8-5.5); Red Cell Distribution Width 14.6 % (9.3-17.3); White Blood Count 21.9 T/CUMM (4-12)
[2022-01-24 03:47] LABS: Calcium 8.3 MG/DL (8.5-10.1); Potassium 4.3 MMOL/L (3.5-5.1)
[2022-01-24 03:59] LABS: Hypochromia 1+; Lymphocytes 1 % (20-55); Microcytosis 1+; Platelet Estimate Adequate; Segmented Neutrophils 98 % (50-85); Total Cells Counted 100
[2022-01-24] MEDS: MEROPENEM 500 MG in SODIUM CHLORIDE 0.9% 100 ML IV SCH ×3 (04:04→20:54)
[2022-01-24] MEDS: SKIN HEALING OINT (AQUAPHOR) 50 GM TUBE TOP SCH (09:02)
[2022-01-24] MEDS: FERROUS SULFATE 325 MG TABLET PO SCH ×2 (09:02→20:53)
[2022-01-24] MEDS: DOCUSATE SODIUM 100 MG CAPSULE PO SCH ×2 (09:02→20:53)
[2022-01-24] MEDS: PANTOPRAZOLE 40 MG VIAL IV SCH (09:02)
[2022-01-24] MEDS: METOPROLOL TARTRATE 25 MG TABLET PO SCH ×2 (09:02→20:52)
[2022-01-24] MEDS: APIXABAN 2.5 MG TABLET PO SCH ×2 (09:02→20:53)
[2022-01-24] MEDS: methylPREDNISolone SOD SUC 40 MG/1 ML VIAL IV SCH ×2 (09:06→20:09)
[2022-01-24] MEDS ORDERED: FUROSEMIDE 40 MG/4 ML VIAL IV ONE (09:28)
[2022-01-24] MEDS: MIDAZOLAM 100 MG in SODIUM CHLORIDE 0.9% 80 ML IV PRN ×2 (09:31→21:52)
[2022-01-24] MEDS: TAMSULOSIN 0.4 MG CAPSULE PO SCH (20:52)
[2022-01-24] MEDS: SIMVASTATIN 20 MG TABLET PO SCH (20:52)
[2022-01-24] MEDS: LATANOPROST 0.005% OPH SOLN 2.5 ML BOTTLE BOTH EYES SCH (21:48)
[2022-01-25] MEDS: INSULIN LISPRO 100 UNIT/ML SUBCUT SCH ×4 (00:21→18:46)
[2022-01-25] MEDS: MEROPENEM 500 MG in SODIUM CHLORIDE 0.9% 100 ML IV SCH ×3 (04:32→20:03)
[2022-01-25 04:33] LABS: ABG Base Excess 1.7 MMOL/L (-2.5-2.5); ABG Oxygen Saturation 99.1 % (95-100); ABG PCO2 38.3 MM HG (35-48); ABG PH 7.438 (7.35-7.45)
[2022-01-25 04:34] LABS: Basophils % 0.1 % (0.0-0.8); Hematocrit 25.3 VOL% (42.0-52.0); Hemoglobin 8.4 GM/DL (14.0-18.0); Immature Granulocytes % 2.3 %; Immature Granulocytes Absolute 0.53 #; Lymphocytes # 0.3 10*3/uL (1.4-4.0); Lymphocytes % 1.5 % (21.2-54.2); Mean Corpuscular HGB Conc 33.2 GM/DL (32-36); Mean Corpuscular Volume 87.5 FL (87-102); Mean Platelet Volume 12.8 FL (9.6-12.0); Monocytes % 3.6 % (1.7-12.7); Neutrophils % 92.5 % (38.7-73.9); Platelet Count 164 T/CUMM (130-400); Red Blood Count 2.89 MC/CUMM (3.8-5.5); White Blood Count 22.9 T/CUMM (4-12)
[2022-01-25 05:01] LABS: Calcium 8.2 MG/DL (8.5-10.1); Osmolality,Calculated 310.5 MOS/KG (273-304); Potassium 4.5 MMOL/L (3.5-5.1)
[2022-01-25 05:25] LABS: Anisocytosis 1+; Lymphocytes 1 % (20-55); Macrocytosis 1+; Myelocytes 1 %; Platelet Estimate Normal; Segmented Neutrophils 93 % (50-85); Total Cells Counted 100
[2022-01-25] MEDS: PANTOPRAZOLE 40 MG VIAL IV SCH (08:26)
[2022-01-25] MEDS: DOCUSATE SODIUM 100 MG CAPSULE PO SCH ×2 (08:27→20:04)
[2022-01-25] MEDS: METOPROLOL TARTRATE 25 MG TABLET PO SCH ×2 (08:27→20:04)
[2022-01-25] MEDS: APIXABAN 2.5 MG TABLET PO SCH ×2 (08:27→20:04)
[2022-01-25] MEDS: FERROUS SULFATE 325 MG TABLET PO SCH ×2 (08:27→20:04)
[2022-01-25] MEDS: methylPREDNISolone SOD SUC 40 MG/1 ML VIAL IV SCH ×2 (08:27→20:04)
[2022-01-25] MEDS: MIDAZOLAM 100 MG in SODIUM CHLORIDE 0.9% 80 ML IV PRN ×2 (08:54→23:10)
[2022-01-25] MEDS: SKIN HEALING OINT (AQUAPHOR) 50 GM TUBE TOP SCH (10:23)
[2022-01-25] MEDS ORDERED: SODIUM BICARBONATE 50 MEQ/50 ML VIAL IV PRN (15:22)
[2022-01-25] MEDS ORDERED: SODIUM CHLORIDE 0.9% 500 ML IV ONE (15:34)
[2022-01-25] MEDS: LATANOPROST 0.005% OPH SOLN 2.5 ML BOTTLE BOTH EYES SCH (20:03)
[2022-01-25] MEDS: TAMSULOSIN 0.4 MG CAPSULE PO SCH (20:04)
[2022-01-25] MEDS: SIMVASTATIN 20 MG TABLET PO SCH (20:04)
[2022-01-26] MEDS: INSULIN LISPRO 100 UNIT/ML SUBCUT SCH ×5 (00:23→23:49)
[2022-01-26 03:16] LABS: ABG Base Excess 2.7 MMOL/L (-2.5-2.5); ABG HCO3 26.8 MMOL/L (20-26); ABG PCO2 38.1 MM HG (35-48); ABG PH 7.453 (7.35-7.45); ABG PO2 97.8 MM HG (80-95); ABG TCO2 24.5 MMOL/L (23-27)
[2022-01-26 03:25] LABS: Basophils % 0.1 % (0.0-0.8); Hemoglobin 8.9 GM/DL (14.0-18.0); Immature Granulocytes % 1.9 %; Immature Granulocytes Absolute 0.41 #; Lymphocytes # 0.3 10*3/uL (1.4-4.0); Lymphocytes % 1.6 % (21.2-54.2); Mean Corpuscular HGB Conc 31.8 GM/DL (32-36); Mean Corpuscular Volume 88.1 FL (87-102); Mean Platelet Volume 13.6 FL (9.6-12.0); Monocytes % 2.6 % (1.7-12.7); Neutrophils % 93.8 % (38.7-73.9); Platelet Count 169 T/CUMM (130-400); Red Blood Count 3.18 MC/CUMM (3.8-5.5); Red Cell Distribution Width 15.1 % (9.3-17.3); White Blood Count 21.1 T/CUMM (4-12)
[2022-01-26 03:38] LABS: Calcium 8.3 MG/DL (8.5-10.1); Osmolality,Calculated 312.4 MOS/KG (273-304); Potassium 4.8 MMOL/L (3.5-5.1)
[2022-01-26] MEDS: MEROPENEM 500 MG in SODIUM CHLORIDE 0.9% 100 ML IV SCH ×3 (04:03→20:20)
[2022-01-26] MEDS: PANTOPRAZOLE 40 MG VIAL IV SCH (08:37)
[2022-01-26] MEDS: DOCUSATE SODIUM 100 MG CAPSULE PO SCH ×2 (08:37→20:20)
[2022-01-26] MEDS: APIXABAN 2.5 MG TABLET PO SCH ×2 (08:37→20:20)
[2022-01-26] MEDS: methylPREDNISolone SOD SUC 40 MG/1 ML VIAL IV SCH ×2 (08:37→20:20)
[2022-01-26] MEDS: FERROUS SULFATE 325 MG TABLET PO SCH ×2 (08:38→20:20)
[2022-01-26] MEDS: METOPROLOL TARTRATE 25 MG TABLET PO SCH ×2 (08:38→20:20)
[2022-01-26] MEDS: SKIN HEALING OINT (AQUAPHOR) 50 GM TUBE TOP SCH (08:57)
[2022-01-26] MEDS: MICAFUNGIN 100 MG in SODIUM CHLORIDE 0.9% 100 ML IV SCH (18:27)
[2022-01-26] MEDS: SIMVASTATIN 20 MG TABLET PO SCH (20:20)
[2022-01-26] MEDS: TAMSULOSIN 0.4 MG CAPSULE PO SCH (20:20)
[2022-01-26] MEDS: LATANOPROST 0.005% OPH SOLN 2.5 ML BOTTLE BOTH EYES SCH (20:21)
[2022-01-27 03:41] LABS: Basophils % 0.1 % (0.0-0.8); Hematocrit 29.6 VOL% (42.0-52.0); Hemoglobin 9.4 GM/DL (14.0-18.0); Immature Granulocytes % 2.1 %; Immature Granulocytes Absolute 0.46 #; Lymphocytes # 0.4 10*3/uL (1.4-4.0); Lymphocytes % 1.7 % (21.2-54.2); Mean Corpuscular HGB Conc 31.8 GM/DL (32-36); Mean Corpuscular Volume 88.6 FL (87-102); Monocytes % 3.3 % (1.7-12.7); Neutrophils % 92.8 % (38.7-73.9); Platelet Count 167 T/CUMM (130-400); Red Blood Count 3.34 MC/CUMM (3.8-5.5); Red Cell Distribution Width 15.1 % (9.3-17.3); White Blood Count 22.1 T/CUMM (4-12)
[2022-01-27 03:56] LABS: Calcium 8.7 MG/DL (8.5-10.1); Osmolality,Calculated 310.5 MOS/KG (273-304)
[2022-01-27 04:12] LABS: Band Neutrophils 1 % (0-10); Hypochromia 1+; Lymphocytes 2 % (20-55); Microcytosis 1+; Platelet Estimate Adequate; Segmented Neutrophils 92 % (50-85); Total Cells Counted 100
[2022-01-27] MEDS: MEROPENEM 500 MG in SODIUM CHLORIDE 0.9% 100 ML IV SCH ×3 (04:15→21:27)
[2022-01-27 04:34] LABS: ABG Base Excess 1.7 MMOL/L (-2.5-2.5); ABG HCO3 25.1 MMOL/L (20-26); ABG PCO2 34.8 MM HG (35-48); ABG PH 7.476 (7.35-7.45); ABG PO2 63.8 MM HG (80-95); ABG TCO2 26.2 MMOL/L (23-27)
[2022-01-27] MEDS: PANTOPRAZOLE 40 MG VIAL IV SCH (08:24)
[2022-01-27] MEDS: methylPREDNISolone SOD SUC 40 MG/1 ML VIAL IV SCH ×2 (08:24→21:24)
[2022-01-27] MEDS: FERROUS SULFATE 325 MG TABLET PO SCH ×2 (08:25→21:30)
[2022-01-27] MEDS: INSULIN LISPRO 100 UNIT/ML SUBCUT SCH ×4 (08:25→21:21)
[2022-01-27] MEDS: APIXABAN 2.5 MG TABLET PO SCH ×2 (08:25→21:30)
[2022-01-27] MEDS: METOPROLOL TARTRATE 25 MG TABLET PO SCH ×2 (08:25→21:30)
[2022-01-27] MEDS: SKIN HEALING OINT (AQUAPHOR) 50 GM TUBE TOP SCH (08:25)
[2022-01-27] MEDS: DOCUSATE SODIUM 100 MG CAPSULE PO SCH ×2 (08:26→21:30)
[2022-01-27] MEDS: FUROSEMIDE 40 MG/4 ML VIAL IV SCH ×2 (08:29→17:56)
[2022-01-27] MEDS: INSULIN GLARGINE 100 UNIT/ML SUBCUT SCH (08:30)
[2022-01-27] MEDS: MICAFUNGIN 100 MG in SODIUM CHLORIDE 0.9% 100 ML IV SCH (19:07)
[2022-01-27] MEDS: LATANOPROST 0.005% OPH SOLN 2.5 ML BOTTLE BOTH EYES SCH (21:29)
[2022-01-27] MEDS: SIMVASTATIN 20 MG TABLET PO SCH (21:30)
[2022-01-27] MEDS: TAMSULOSIN 0.4 MG CAPSULE PO SCH (21:31)
[2022-01-28 04:02] LABS: ABG Base Excess 5.5 MMOL/L (-2.5-2.5); ABG HCO3 29.4 MMOL/L (20-26); ABG Oxygen Saturation 96.3 % (95-100); ABG PCO2 39.3 MM HG (35-48); ABG PH 7.481 (7.35-7.45); ABG PO2 79.7 MM HG (80-95); ABG TCO2 26.4 MMOL/L (23-27)
[2022-01-28] MEDS: MEROPENEM 500 MG in SODIUM CHLORIDE 0.9% 100 ML IV SCH ×3 (04:35→21:12)
[2022-01-28 05:46] LABS: Basophils % 0.1 % (0.0-0.8); Hematocrit 28.1 VOL% (42.0-52.0); Immature Granulocytes % 1.5 %; Immature Granulocytes Absolute 0.36 #; Lymphocytes # 0.5 10*3/uL (1.4-4.0); Lymphocytes % 2.1 % (21.2-54.2); Mean Corpuscular Volume 88.4 FL (87-102); Mean Platelet Volume 13.8 FL (9.6-12.0); Monocytes % 2.7 % (1.7-12.7); Neutrophils % 93.6 % (38.7-73.9); Platelet Count 157 T/CUMM (130-400); Red Blood Count 3.18 MC/CUMM (3.8-5.5); Red Cell Distribution Width 15.3 % (9.3-17.3); White Blood Count 24.2 T/CUMM (4-12)
[2022-01-28 05:59] LABS: Calcium 8.9 MG/DL (8.5-10.1); Osmolality,Calculated 308.5 MOS/KG (273-304)
[2022-01-28 06:16] LABS: Hypochromia 1+; Lymphocytes 2 % (20-55); Microcytosis 1+; Platelet Estimate Adequate; Segmented Neutrophils 96 % (50-85); Total Cells Counted 100
[2022-01-28] MEDS: INSULIN LISPRO 100 UNIT/ML SUBCUT SCH ×4 (09:26→21:11)
[2022-01-28] MEDS: INSULIN GLARGINE 100 UNIT/ML SUBCUT SCH (09:27)
[2022-01-28] MEDS: FUROSEMIDE 40 MG/4 ML VIAL IV SCH (09:28)
[2022-01-28] MEDS: methylPREDNISolone SOD SUC 40 MG/1 ML VIAL IV SCH ×2 (09:28→21:11)
[2022-01-28] MEDS: METOPROLOL TARTRATE 25 MG TABLET PO SCH ×2 (09:29→21:10)
[2022-01-28] MEDS: PANTOPRAZOLE 40 MG VIAL IV SCH (09:29)
[2022-01-28] MEDS: SKIN HEALING OINT (AQUAPHOR) 50 GM TUBE TOP SCH (09:29)
[2022-01-28] MEDS: APIXABAN 2.5 MG TABLET PO SCH ×2 (09:29→21:10)
[2022-01-28] MEDS: DOCUSATE SODIUM 100 MG CAPSULE PO SCH ×2 (09:29→21:10)
[2022-01-28] MEDS: FERROUS SULFATE 325 MG TABLET PO SCH ×2 (09:29→21:10)
[2022-01-28] MEDS: MICAFUNGIN 100 MG in SODIUM CHLORIDE 0.9% 100 ML IV SCH (17:37)
[2022-01-28] MEDS: SIMVASTATIN 20 MG TABLET PO SCH (21:10)
[2022-01-28] MEDS: TAMSULOSIN 0.4 MG CAPSULE PO SCH (21:11)
[2022-01-28] MEDS: LATANOPROST 0.005% OPH SOLN 2.5 ML BOTTLE BOTH EYES SCH (21:53)
[2022-01-29] MEDS: MEROPENEM 500 MG in SODIUM CHLORIDE 0.9% 100 ML IV SCH ×3 (05:30→20:28)
[2022-01-29 06:14] LABS: Basophils % 0.1 % (0.0-0.8); Eosinophils % 0.1 % (0.00-10.9); Hematocrit 27.4 VOL% (42.0-52.0); Hemoglobin 8.8 GM/DL (14.0-18.0); Immature Granulocytes % 1.5 %; Immature Granulocytes Absolute 0.35 #; Lymphocytes # 0.8 10*3/uL (1.4-4.0); Lymphocytes % 3.2 % (21.2-54.2); Mean Corpuscular HGB Conc 32.1 GM/DL (32-36); Mean Corpuscular Volume 89.5 FL (87-102); Mean Platelet Volume 13.3 FL (9.6-12.0); Monocytes % 3.8 % (1.7-12.7); Neutrophils % 91.3 % (38.7-73.9); Platelet Count 164 T/CUMM (130-400); Red Blood Count 3.06 MC/CUMM (3.8-5.5); Red Cell Distribution Width 15.9 % (9.3-17.3); White Blood Count 23.7 T/CUMM (4-12)
[2022-01-29 06:23] LABS: Calcium 8.7 MG/DL (8.5-10.1); Osmolality,Calculated 298.7 MOS/KG (273-304); Potassium 5.1 MMOL/L (3.5-5.1)
[2022-01-29 06:32] LABS: Hypochromia 1+; Lymphocytes 3 % (20-55); Microcytosis 1+; Segmented Neutrophils 95 % (50-85); Total Cells Counted 100
[2022-01-29 06:33] LABS: Anisocytosis 1+; Platelet Estimate Adequate
[2022-01-29] MEDS: INSULIN LISPRO 100 UNIT/ML SUBCUT SCH ×4 (08:54→20:29)
[2022-01-29] MEDS: INSULIN GLARGINE 100 UNIT/ML SUBCUT SCH (12:14)
[2022-01-29] MEDS: APIXABAN 2.5 MG TABLET PO SCH ×2 (12:15→20:27)
[2022-01-29] MEDS: DOCUSATE SODIUM 100 MG CAPSULE PO SCH ×2 (12:16→20:28)
[2022-01-29] MEDS: SKIN HEALING OINT (AQUAPHOR) 50 GM TUBE TOP SCH (12:16)
[2022-01-29] MEDS: FERROUS SULFATE 325 MG TABLET PO SCH ×2 (12:16→20:28)
[2022-01-29] MEDS: METOPROLOL TARTRATE 25 MG TABLET PO SCH ×2 (12:17→20:28)
[2022-01-29] MEDS: MICAFUNGIN 100 MG in SODIUM CHLORIDE 0.9% 100 ML IV SCH (12:20)
[2022-01-29] MEDS: TAMSULOSIN 0.4 MG CAPSULE PO SCH (20:28)
[2022-01-29] MEDS: SIMVASTATIN 20 MG TABLET PO SCH (20:28)
[2022-01-29] MEDS: LATANOPROST 0.005% OPH SOLN 2.5 ML BOTTLE BOTH EYES SCH (20:29)
[2022-01-30 05:27] LABS: Basophils % 0.1 % (0.0-0.8); Eosinophils # 0.3 10*3/uL (0.0-0.87); Eosinophils % 1.6 % (0.00-10.9); Hematocrit 24.7 VOL% (42.0-52.0); Immature Granulocytes Absolute 0.17 #; Lymphocytes # 0.9 10*3/uL (1.4-4.0); Lymphocytes % 5.4 % (21.2-54.2); Mean Corpuscular HGB Conc 32.4 GM/DL (32-36); Mean Corpuscular Volume 89.5 FL (87-102); Mean Platelet Volume 12.7 FL (9.6-12.0); Monocytes % 5.3 % (1.7-12.7); Neutrophils % 86.6 % (38.7-73.9); Platelet Count 146 T/CUMM (130-400); Red Blood Count 2.76 MC/CUMM (3.8-5.5); White Blood Count 16.7 T/CUMM (4-12)
[2022-01-30] MEDS: MEROPENEM 500 MG in SODIUM CHLORIDE 0.9% 100 ML IV SCH ×2 (05:43→13:03)
[2022-01-30 05:44] LABS: Calcium 8.6 MG/DL (8.5-10.1); Osmolality,Calculated 299.5 MOS/KG (273-304)
[2022-01-30] MEDS ORDERED: PANTOPRAZOLE 40 MG TABLET PO SCH (06:30)
[2022-01-30] MEDS: INSULIN LISPRO 100 UNIT/ML SUBCUT SCH ×2 (09:08→12:29)
[2022-01-30] MEDS: MICAFUNGIN 100 MG in SODIUM CHLORIDE 0.9% 100 ML IV SCH (09:10)
[2022-01-30] MEDS: DOCUSATE SODIUM 100 MG CAPSULE PO SCH (09:13)
[2022-01-30] MEDS: FERROUS SULFATE 325 MG TABLET PO SCH (09:13)
[2022-01-30] MEDS: APIXABAN 2.5 MG TABLET PO SCH (09:13)
[2022-01-30] MEDS: METOPROLOL TARTRATE 25 MG TABLET PO SCH (09:13)
[2022-01-30] MEDS: SKIN HEALING OINT (AQUAPHOR) 50 GM TUBE TOP SCH (09:14)
[2022-01-30] MEDS: INSULIN GLARGINE 100 UNIT/ML SUBCUT SCH (09:14)
[2022-01-30 15:42] VITALS: BP 127/66
== END 2022-01-30 16:00 | DRG 70 ==
LOC: N.ED 17:45 → N.EDINP 17:45 → N.5E 01-09 03:51 → SUATTDRO 01-10 15:57 → N.CC 01-21 13:00 → N.5E 01-27 15:08
PROVIDERS: ADMIT Family Medicine; ATTEND Family Medicine

== ENCOUNTER 2022-03-21 08:02 | Inpatient (IN) ==
[2022-03-21] MEDS ORDERED: SODIUM CHLORIDE 0.9% 500 ML IV STA (08:30)
[2022-03-21 08:56] LABS: Arterial Base Excess iSTAT -4 MMOL/L (-2.5-2.5); Arterial Bicarbonate iSTAT 21.7 MMOL/L (20-26); Arterial O2 Saturation iSTAT 97 % (95-100); Arterial PCO2 iSTAT 41 MM HG (35-48); Arterial PO2 iSTAT 103 MM HG (80-95); Arterial Total CO2 iSTAT 23 MMO/L (23-27); Arterial pH iSTAT 7.329 (7.35-7.45)
[2022-03-21 09:35] LABS: Basophils % 0.1 % (0.0-0.8); Hematocrit 18.7 VOL% (42.0-52.0); Immature Granulocytes % 1.2 %; Immature Granulocytes Absolute 0.22 #; Lymphocytes # 0.6 10*3/uL (1.4-4.0); Mean Corpuscular HGB Conc 29.4 GM/DL (32-36); Mean Corpuscular Volume 81.7 FL (87-102); Mean Platelet Volume 12.3 FL (9.6-12.0); Monocytes # 0.7 10*3/uL (0.11-0.8); Monocytes % 3.6 % (1.7-12.7); Neutrophils % 92.1 % (38.7-73.9); Platelet Count 231 T/CUMM (130-400); Red Blood Count 2.29 MC/CUMM (3.8-5.5); Red Cell Distribution Width 19.6 % (9.3-17.3); White Blood Count 18.5 T/CUMM (4-12)
[2022-03-21 09:37] LABS: Hemoglobin 5.5 GM/DL (14.0-18.0)
[2022-03-21 09:43] LABS: INR 1.2
[2022-03-21 09:55] LABS: Albumin 1.4 G/DL (3.4-5.0); Bilirubin,Total 0.4 MG/DL (0.20-1.00); Calcium 8.3 MG/DL (8.5-10.1); Total Protein 5.9 G/DL (6.4-8.2)
[2022-03-21] MEDS ORDERED: SODIUM CHLORIDE 0.9% 1,000 ML IV PRN (09:57)
[2022-03-21 10:03] LABS: Lymphocytes 2 % (20-55); Total Cells Counted 100
[2022-03-21] MEDS ORDERED: FUROSEMIDE 40 MG/4 ML VIAL IV STA (10:03)
[2022-03-21 10:04] LABS: Anisocytosis 1+; Hypochromia 1+; Ovalocytes Few; Polychromasia Slight
[2022-03-21 10:05] LABS: Tear Drop Cells Slight
[2022-03-21 10:06] LABS: Platelet Estimate Normal
[2022-03-21] MEDS ORDERED: ONDANSETRON 4 MG/2 ML VIAL IV PRN (10:17)
[2022-03-21 10:24] LABS: Mucus,Urine Occasional /LPF (Occasional); RBC,Urine 4 /HPF (0-4); Squamous Epithelial Cell,Urine Occasional /HPF (0-10)
[2022-03-21 10:25] LABS: Bilirubin,Urine Negative (Negative); Blood, Urine Negative (Negative); Glucose,Urine (UA) Negative (Negative); Ketones,Urine Negative (Negative); Nitrite,Urine Negative (Negative); Protein,Urine Negative (Negative); Urine Appearance Clear (Clear); Urine Color Yellow (Yellow); Urine Specific Gravity 1.015 (1.001-1.035); Urine Urobilinogen 0.2 eU/dL (<2.0)
[2022-03-21] MEDS ORDERED: LEVOFLOXACIN INJ 500 MG/100 ML PREMIX IV ONE (20:00)
[2022-03-21] MEDS: DOCUSATE SODIUM 100 MG CAPSULE PO SCH (22:54)
[2022-03-21] MEDS: INSULIN LISPRO 100 UNIT/ML SUBCUT SCH (22:54)
[2022-03-21] MEDS: TAMSULOSIN 0.4 MG CAPSULE PO SCH (22:54)
[2022-03-21] MEDS: LATANOPROST 0.005% OPH SOLN 2.5 ML BOTTLE BOTH EYES SCH (22:55)
[2022-03-22 01:47] LABS: Hematocrit 23.9 VOL% (42.0-52.0); Hemoglobin 7.5 GM/DL (14.0-18.0)
[2022-03-22 05:09] LABS: Basophils % 0.1 % (0.0-0.8); Eosinophils % 0.1 % (0.00-10.9); Hematocrit 22.5 VOL% (42.0-52.0); Hemoglobin 7.1 GM/DL (14.0-18.0); Immature Granulocytes % 1.3 %; Immature Granulocytes Absolute 0.21 #; Lymphocytes # 0.4 10*3/uL (1.4-4.0); Lymphocytes % 2.1 % (21.2-54.2); Mean Corpuscular HGB Conc 31.6 GM/DL (32-36); Mean Corpuscular Volume 82.1 FL (87-102); Mean Platelet Volume 11.5 FL (9.6-12.0); Monocytes # 0.4 10*3/uL (0.11-0.8); Monocytes % 2.4 % (1.7-12.7); Platelet Count 181 T/CUMM (130-400); Red Blood Count 2.74 MC/CUMM (3.8-5.5); Red Cell Distribution Width 18.3 % (9.3-17.3); White Blood Count 16.5 T/CUMM (4-12)
[2022-03-22 05:28] LABS: Alanine Aminotransferase 13 U/L (16-61); Albumin 1.2 G/DL (3.4-5.0); Alkaline Phosphatase 79 U/L (45-117); Aspartate Amino Transferase 10 U/L (0-37); Blood Urea Nitrogen 103 MG/DL (7-18); Calcium 7.9 MG/DL (8.5-10.1); Carbon Dioxide 20 MMOL/L (21-32); Chloride 115 MMOL/L (98-107); Estimated Glom Filtration Rate 36 ML/MIN; Glucose 105 MG/DL (74-106); Potassium 3.8 MMOL/L (3.5-5.1); Prealbumin < 3.0 MG/DL (20-40); Sodium 143 MMOL/L (136-145); Total Protein 5.4 G/DL (6.4-8.2)
[2022-03-22 06:12] LABS: Band Neutrophils 29 % (0-10); Lymphocytes 1 % (20-55); Platelet Estimate Normal; Smudge Cells Few; Total Cells Counted 100
[2022-03-22 06:13] LABS: Acanthocytes Few; Anisocytosis 2+; Macrocytosis Slight; Ovalocytes Few; Tear Drop Cells Few
[2022-03-22] MEDS ORDERED: SODIUM CHLORIDE 0.9% 1,000 ML IV PRN (07:13)
[2022-03-22 08:24] LABS: Hematocrit 24.8 VOL% (42.0-52.0); Hemoglobin 7.6 GM/DL (14.0-18.0)
[2022-03-22] MEDS: INSULIN LISPRO 100 UNIT/ML SUBCUT SCH ×4 (08:49→22:10)
[2022-03-22] MEDS ORDERED: KETAMINE 500 MG/10 ML VIAL ONE (09:31)
[2022-03-22] MEDS ORDERED: LIDOCAINE 1%/EPI INJ 20 ML VIAL ONE (09:37)
[2022-03-22] MEDS ORDERED: BUPIVACAINE MPF 0.25% 30 ML VIAL ONE (09:37)
[2022-03-22] MEDS ORDERED: LIDOCAINE 2% 5 ML VIAL ONE (09:40)
[2022-03-22] MEDS ORDERED: ETOMIDATE 40 MG/20 ML VIAL IV ONE (09:40)
[2022-03-22] MEDS ORDERED: PHENYLEPHRINE 1 MG/10 ML SYRINGE IV ONE (10:23)
[2022-03-22] MEDS ORDERED: LACTATED RINGERS 1,000 ML IV SCH (10:30)
[2022-03-22] MEDS: PANTOPRAZOLE 40 MG TABLET PO SCH (12:27)
[2022-03-22] MEDS: DOCUSATE SODIUM 100 MG CAPSULE PO SCH ×2 (12:27→22:07)
[2022-03-22] MEDS: FUROSEMIDE 40 MG/4 ML VIAL IV SCH ×2 (12:31→15:46)
[2022-03-22 18:47] LABS: Hematocrit 26.9 VOL% (42.0-52.0); Hemoglobin 8.5 GM/DL (14.0-18.0)
[2022-03-22] MEDS: LEVOFLOXACIN INJ 250 MG/50 ML PREMIX IV SCH (22:07)
[2022-03-22] MEDS: TAMSULOSIN 0.4 MG CAPSULE PO SCH (22:07)
[2022-03-22] MEDS: LATANOPROST 0.005% OPH SOLN 2.5 ML BOTTLE BOTH EYES SCH (22:10)
[2022-03-23] MEDS: ACETAMINOPHEN 325 MG TABLET PO PRN (04:27)
[2022-03-23 05:41] LABS: Basophils % 0.1 % (0.0-0.8); Hematocrit 25.3 VOL% (42.0-52.0); Hemoglobin 7.8 GM/DL (14.0-18.0); Immature Granulocytes % 0.6 %; Immature Granulocytes Absolute 0.09 #; Lymphocytes # 0.6 10*3/uL (1.4-4.0); Lymphocytes % 4.5 % (21.2-54.2); Mean Corpuscular HGB Conc 30.8 GM/DL (32-36); Mean Corpuscular Volume 83.8 FL (87-102); Mean Platelet Volume 11.7 FL (9.6-12.0); Monocytes # 0.6 10*3/uL (0.11-0.8); Monocytes % 3.9 % (1.7-12.7); Neutrophils % 90.9 % (38.7-73.9); Platelet Count 159 T/CUMM (130-400); Red Blood Count 3.02 MC/CUMM (3.8-5.5); White Blood Count 14.2 T/CUMM (4-12)
[2022-03-23 06:02] LABS: Alanine Aminotransferase < 9 U/L (16-61); Albumin 1.2 G/DL (3.4-5.0); Alkaline Phosphatase 76 U/L (45-117); Aspartate Amino Transferase 9 U/L (0-37); Blood Urea Nitrogen 109 MG/DL (7-18); Calcium 7.9 MG/DL (8.5-10.1); Carbon Dioxide 20 MMOL/L (21-32); Chloride 115 MMOL/L (98-107); Estimated Glom Filtration Rate 36 ML/MIN; Glucose 242 MG/DL (74-106); Osmolality,Calculated 329.7 MOS/KG (273-304); Potassium 3.5 MMOL/L (3.5-5.1); Sodium 145 MMOL/L (136-145)
[2022-03-23 06:08] LABS: Hypochromia 1+; Lymphocytes 4 % (20-55); Microcytosis 1+; Platelet Estimate Adequate; Total Cells Counted 100
[2022-03-23] MEDS: INSULIN LISPRO 100 UNIT/ML SUBCUT SCH ×3 (10:40→17:08)
[2022-03-23] MEDS: FUROSEMIDE 40 MG/4 ML VIAL IV SCH (10:40)
[2022-03-23] MEDS: DOCUSATE SODIUM 100 MG CAPSULE PO SCH ×2 (10:40→21:36)
[2022-03-23] MEDS: MULTIVITAMIN (CENTRUM) TABLET PO SCH (10:40)
[2022-03-23] MEDS: PANTOPRAZOLE 40 MG TABLET PO SCH (10:41)
[2022-03-23] MEDS: SODIUM CHLORIDE 0.9% 1,000 ML IV SCH (16:22)
[2022-03-23] MEDS: TAMSULOSIN 0.4 MG CAPSULE PO SCH (21:36)
[2022-03-23] MEDS: LEVOFLOXACIN INJ 250 MG/50 ML PREMIX IV SCH (21:36)
[2022-03-23] MEDS: LATANOPROST 0.005% OPH SOLN 2.5 ML BOTTLE BOTH EYES SCH (21:37)
[2022-03-24] MEDS: INSULIN LISPRO 100 UNIT/ML SUBCUT SCH ×5 (00:40→22:10)
[2022-03-24 07:09] LABS: Basophils % 0.1 % (0.0-0.8); Eosinophils # 0.1 10*3/uL (0.0-0.87); Eosinophils % 0.6 % (0.00-10.9); Hematocrit 26.5 VOL% (42.0-52.0); Hemoglobin 8.1 GM/DL (14.0-18.0); Immature Granulocytes % 0.7 %; Lymphocytes # 0.9 10*3/uL (1.4-4.0); Lymphocytes % 6.1 % (21.2-54.2); Mean Corpuscular HGB Conc 30.6 GM/DL (32-36); Mean Corpuscular Volume 84.7 FL (87-102); Mean Platelet Volume 12.5 FL (9.6-12.0); Monocytes # 0.5 10*3/uL (0.11-0.8); Monocytes % 3.7 % (1.7-12.7); Neutrophils % 88.8 % (38.7-73.9); Platelet Count 154 T/CUMM (130-400); Red Blood Count 3.13 MC/CUMM (3.8-5.5); Red Cell Distribution Width 18.3 % (9.3-17.3); White Blood Count 14.5 T/CUMM (4-12)
[2022-03-24 07:28] LABS: Alanine Aminotransferase < 9 U/L (16-61); Albumin 1.3 G/DL (3.4-5.0); Alkaline Phosphatase 72 U/L (45-117); Aspartate Amino Transferase 6 U/L (0-37); Blood Urea Nitrogen 108 MG/DL (7-18); Carbon Dioxide 21 MMOL/L (21-32); Chloride 114 MMOL/L (98-107); Estimated Glom Filtration Rate 36 ML/MIN; Glucose 79 MG/DL (74-106); Osmolality,Calculated 320.7 MOS/KG (273-304); Potassium 3.4 MMOL/L (3.5-5.1); Sodium 145 MMOL/L (136-145); Total Protein 5.4 G/DL (6.4-8.2)
[2022-03-24 07:40] LABS: Hypochromia 1+; Lymphocytes 3 % (20-55); Microcytosis 1+; Platelet Estimate Adequate; Total Cells Counted 100
[2022-03-24] MEDS: PANTOPRAZOLE 40 MG TABLET PO SCH (10:24)
[2022-03-24] MEDS: DOCUSATE SODIUM 100 MG CAPSULE PO SCH ×2 (10:24→22:02)
[2022-03-24] MEDS: FUROSEMIDE 40 MG/4 ML VIAL IV SCH (10:24)
[2022-03-24] MEDS: MULTIVITAMIN (CENTRUM) TABLET PO SCH (10:24)
[2022-03-24] MEDS: SODIUM CHLORIDE 0.9% 1,000 ML IV SCH (12:16)
[2022-03-24] MEDS: traMADol 50 MG TABLET PO PRN (16:53)
[2022-03-24] MEDS: LEVOFLOXACIN INJ 250 MG/50 ML PREMIX IV SCH (21:00)
[2022-03-24] MEDS: LATANOPROST 0.005% OPH SOLN 2.5 ML BOTTLE BOTH EYES SCH (22:03)
[2022-03-24] MEDS: TAMSULOSIN 0.4 MG CAPSULE PO SCH (22:03)
[2022-03-25] MEDS ORDERED: POTASSIUM CHLORIDE INJ 20 MEQ in SODIUM CHLORIDE 0.9% 1,000 ML IV SCH (08:34)
[2022-03-25] MEDS: MULTIVITAMIN (CENTRUM) TABLET PO SCH (10:21)
[2022-03-25] MEDS: INSULIN LISPRO 100 UNIT/ML SUBCUT SCH ×4 (10:21→22:58)
[2022-03-25] MEDS: PANTOPRAZOLE 40 MG TABLET PO SCH (10:22)
[2022-03-25] MEDS: DOCUSATE SODIUM 100 MG CAPSULE PO SCH ×2 (10:22→22:15)
[2022-03-25] MEDS: traMADol 50 MG TABLET PO PRN (10:23)
[2022-03-25] MEDS: FUROSEMIDE 40 MG/4 ML VIAL IV SCH (10:24)
[2022-03-25] MEDS: SODIUM CHLOR 0.9% KCL 20 MEQ 20 MEQ/1,000 ML BAG IV SCH (10:40)
[2022-03-25] MEDS: SODIUM HYPOCHLORITE 0.25% IRRIG 473 ML BOTTLE TOP SCH (11:34)
[2022-03-25] MEDS: MORPHINE 2 MG/1 ML SYRINGE IV PRN (11:34)
[2022-03-25] MEDS: ZINC OXIDE PASTE 113 GM TUBE TOP SCH ×2 (18:54→22:15)
[2022-03-25] MEDS: SODIUM CHLORIDE 0.9% 1,000 ML IV SCH (19:19)
[2022-03-25] MEDS: TAMSULOSIN 0.4 MG CAPSULE PO SCH (22:14)
[2022-03-25] MEDS: LEVOFLOXACIN INJ 250 MG/50 ML PREMIX IV SCH (22:14)
[2022-03-25] MEDS: LATANOPROST 0.005% OPH SOLN 2.5 ML BOTTLE BOTH EYES SCH (22:15)
[2022-03-26 05:09] LABS: Basophils % 0.2 % (0.0-0.8); Eosinophils % 0.2 % (0.00-10.9); Hematocrit 25.9 VOL% (42.0-52.0); Hemoglobin 7.9 GM/DL (14.0-18.0); Immature Granulocytes % 1.3 %; Immature Granulocytes Absolute 0.25 #; Lymphocytes % 4.8 % (21.2-54.2); Mean Corpuscular HGB Conc 30.5 GM/DL (32-36); Mean Corpuscular Volume 84.6 FL (87-102); Mean Platelet Volume 11.8 FL (9.6-12.0); Monocytes # 0.8 10*3/uL (0.11-0.8); Monocytes % 4.2 % (1.7-12.7); Neutrophils % 89.3 % (38.7-73.9); Platelet Count 152 T/CUMM (130-400); Red Blood Count 3.06 MC/CUMM (3.8-5.5); Red Cell Distribution Width 18.6 % (9.3-17.3); White Blood Count 19.9 T/CUMM (4-12)
[2022-03-26 05:23] LABS: Calcium 7.9 MG/DL (8.5-10.1); Osmolality,Calculated 324.7 MOS/KG (273-304); Potassium 4.1 MMOL/L (3.5-5.1)
[2022-03-26 05:28] LABS: Lymphocytes 5 % (20-55); Platelet Estimate Adequate; Total Cells Counted 100
[2022-03-26 05:29] LABS: Hypochromia 1+; Microcytosis 1+
[2022-03-26] MEDS: PANTOPRAZOLE 40 MG TABLET PO SCH (09:58)
[2022-03-26] MEDS: DOCUSATE SODIUM 100 MG CAPSULE PO SCH ×2 (09:58→21:03)
[2022-03-26] MEDS: MULTIVITAMIN (CENTRUM) TABLET PO SCH (09:58)
[2022-03-26] MEDS: INSULIN LISPRO 100 UNIT/ML SUBCUT SCH ×4 (09:58→21:03)
[2022-03-26] MEDS: SODIUM CHLOR 0.9% KCL 20 MEQ 20 MEQ/1,000 ML BAG IV SCH (09:58)
[2022-03-26] MEDS: ZINC OXIDE PASTE 113 GM TUBE TOP SCH ×2 (09:59→21:04)
[2022-03-26] MEDS: AMPICILLIN INJ 2,000 MG in SODIUM CHLORIDE 0.9% 100 ML IV SCH ×3 (09:59→20:10)
[2022-03-26] MEDS: SODIUM HYPOCHLORITE 0.25% IRRIG 473 ML BOTTLE TOP SCH (09:59)
[2022-03-26] MEDS: FUROSEMIDE 40 MG/4 ML VIAL IV SCH (10:00)
[2022-03-26] MEDS: traMADol 50 MG TABLET PO PRN (10:44)
[2022-03-26] MEDS: TAMSULOSIN 0.4 MG CAPSULE PO SCH (21:03)
[2022-03-26] MEDS: LEVOFLOXACIN INJ 250 MG/50 ML PREMIX IV SCH (21:04)
[2022-03-26] MEDS: LATANOPROST 0.005% OPH SOLN 2.5 ML BOTTLE BOTH EYES SCH (21:05)
[2022-03-27] MEDS: AMPICILLIN INJ 2,000 MG in SODIUM CHLORIDE 0.9% 100 ML IV SCH ×4 (02:09→21:48)
[2022-03-27 05:27] LABS: Basophils % 0.1 % (0.0-0.8); Eosinophils # 0.1 10*3/uL (0.0-0.87); Eosinophils % 0.5 % (0.00-10.9); Hematocrit 26.4 VOL% (42.0-52.0); Hemoglobin 8.2 GM/DL (14.0-18.0); Immature Granulocytes % 1.4 %; Immature Granulocytes Absolute 0.21 #; Lymphocytes # 0.8 10*3/uL (1.4-4.0); Lymphocytes % 5.3 % (21.2-54.2); Mean Corpuscular HGB Conc 31.1 GM/DL (32-36); Mean Corpuscular Volume 85.2 FL (87-102); Mean Platelet Volume 11.1 FL (9.6-12.0); Monocytes # 0.9 10*3/uL (0.11-0.8); Monocytes % 5.6 % (1.7-12.7); Neutrophils % 87.1 % (38.7-73.9); Platelet Count 125 T/CUMM (130-400); Red Cell Distribution Width 18.6 % (9.3-17.3); White Blood Count 15.4 T/CUMM (4-12)
[2022-03-27 05:36] LABS: Calcium 8.1 MG/DL (8.5-10.1); Osmolality,Calculated 323.6 MOS/KG (273-304); Potassium 3.6 MMOL/L (3.5-5.1)
[2022-03-27] MEDS: PANTOPRAZOLE 40 MG TABLET PO SCH (09:23)
[2022-03-27] MEDS: INSULIN LISPRO 100 UNIT/ML SUBCUT SCH ×4 (09:23→22:28)
[2022-03-27] MEDS: MULTIVITAMIN (CENTRUM) TABLET PO SCH (09:23)
[2022-03-27] MEDS: DOCUSATE SODIUM 100 MG CAPSULE PO SCH ×2 (09:23→22:27)
[2022-03-27] MEDS: FUROSEMIDE 40 MG TABLET PO SCH (09:33)
[2022-03-27] MEDS: SODIUM CHLOR 0.9% KCL 20 MEQ 20 MEQ/1,000 ML BAG IV SCH (10:46)
[2022-03-27] MEDS: ZINC OXIDE PASTE 113 GM TUBE TOP SCH ×2 (14:23→22:27)
[2022-03-27] MEDS: SODIUM HYPOCHLORITE 0.25% IRRIG 473 ML BOTTLE TOP SCH (14:23)
[2022-03-27] MEDS: TAMSULOSIN 0.4 MG CAPSULE PO SCH (22:27)
[2022-03-27] MEDS: LATANOPROST 0.005% OPH SOLN 2.5 ML BOTTLE BOTH EYES SCH (22:27)
[2022-03-27] MEDS: LEVOFLOXACIN INJ 250 MG/50 ML PREMIX IV SCH (22:27)
[2022-03-28] MEDS: SODIUM CHLOR 0.9% KCL 20 MEQ 20 MEQ/1,000 ML BAG IV SCH ×2 (00:12→12:57)
[2022-03-28] MEDS: AMPICILLIN INJ 2,000 MG in SODIUM CHLORIDE 0.9% 100 ML IV SCH ×4 (02:25→20:30)
[2022-03-28 06:19] LABS: Basophils % 0.1 % (0.0-0.8); Eosinophils # 0.1 10*3/uL (0.0-0.87); Eosinophils % 0.5 % (0.00-10.9); Hematocrit 24.3 VOL% (42.0-52.0); Hemoglobin 7.6 GM/DL (14.0-18.0); Immature Granulocytes % 0.9 %; Immature Granulocytes Absolute 0.12 #; Lymphocytes # 0.9 10*3/uL (1.4-4.0); Lymphocytes % 6.6 % (21.2-54.2); Mean Corpuscular HGB Conc 31.3 GM/DL (32-36); Mean Corpuscular Volume 83.2 FL (87-102); Mean Platelet Volume 12.7 FL (9.6-12.0); Monocytes # 0.8 10*3/uL (0.11-0.8); Monocytes % 5.9 % (1.7-12.7); Platelet Count 141 T/CUMM (130-400); Red Blood Count 2.92 MC/CUMM (3.8-5.5); Red Cell Distribution Width 18.9 % (9.3-17.3); White Blood Count 13.2 T/CUMM (4-12)
[2022-03-28 06:32] LABS: Calcium 7.9 MG/DL (8.5-10.1); Potassium 3.5 MMOL/L (3.5-5.1)
[2022-03-28 06:48] LABS: Band Neutrophils 3 % (0-10); Eosinophils 1 % (0-10); Hypochromia Slight; Lymphocytes 6 % (20-55); Total Cells Counted 100
[2022-03-28 06:49] LABS: Microcytosis 1+; Ovalocytes Slight
[2022-03-28 06:50] LABS: Platelet Estimate Adequate
[2022-03-28] MEDS: INSULIN LISPRO 100 UNIT/ML SUBCUT SCH ×3 (08:46→17:05)
[2022-03-28] MEDS: ZINC OXIDE PASTE 113 GM TUBE TOP SCH ×2 (08:47→22:22)
[2022-03-28] MEDS: MULTIVITAMIN (CENTRUM) TABLET PO SCH (08:47)
[2022-03-28] MEDS: SODIUM HYPOCHLORITE 0.25% IRRIG 473 ML BOTTLE TOP SCH (08:47)
[2022-03-28] MEDS: PANTOPRAZOLE 40 MG TABLET PO SCH (08:47)
[2022-03-28] MEDS: DOCUSATE SODIUM 100 MG CAPSULE PO SCH ×2 (08:47→22:21)
[2022-03-28] MEDS: FUROSEMIDE 40 MG TABLET PO SCH (08:47)
[2022-03-28] MEDS: TAMSULOSIN 0.4 MG CAPSULE PO SCH (22:20)
[2022-03-28] MEDS: traMADol 50 MG TABLET PO PRN (22:21)
[2022-03-28] MEDS: LEVOFLOXACIN INJ 250 MG/50 ML PREMIX IV SCH (22:22)
[2022-03-28] MEDS: LATANOPROST 0.005% OPH SOLN 2.5 ML BOTTLE BOTH EYES SCH (22:22)
[2022-03-29] MEDS: INSULIN LISPRO 100 UNIT/ML SUBCUT SCH ×5 (00:04→21:29)
[2022-03-29] MEDS: AMPICILLIN INJ 2,000 MG in SODIUM CHLORIDE 0.9% 100 ML IV SCH ×4 (02:40→21:30)
[2022-03-29 05:12] LABS: Basophils % 0.2 % (0.0-0.8); Eosinophils % 0.3 % (0.00-10.9); Hematocrit 24.1 VOL% (42.0-52.0); Hemoglobin 7.4 GM/DL (14.0-18.0); Immature Granulocytes % 0.8 %; Immature Granulocytes Absolute 0.12 #; Lymphocytes # 0.9 10*3/uL (1.4-4.0); Lymphocytes % 6.3 % (21.2-54.2); Mean Corpuscular HGB Conc 30.7 GM/DL (32-36); Mean Platelet Volume 11.7 FL (9.6-12.0); Monocytes # 0.9 10*3/uL (0.11-0.8); Monocytes % 6.4 % (1.7-12.7); Platelet Count 132 T/CUMM (130-400); Red Blood Count 2.87 MC/CUMM (3.8-5.5); Red Cell Distribution Width 18.8 % (9.3-17.3); White Blood Count 14.5 T/CUMM (4-12)
[2022-03-29 05:33] LABS: Albumin 1.1 G/DL (3.4-5.0); Bilirubin,Total 0.5 MG/DL (0.20-1.00); Calcium 8.2 MG/DL (8.5-10.1); Osmolality,Calculated 323.8 MOS/KG (273-304); Potassium 3.8 MMOL/L (3.5-5.1)
[2022-03-29] MEDS: DOCUSATE SODIUM 100 MG CAPSULE PO SCH ×2 (09:05→21:28)
[2022-03-29] MEDS: FUROSEMIDE 40 MG TABLET PO SCH (09:05)
[2022-03-29] MEDS: MULTIVITAMIN (CENTRUM) TABLET PO SCH (09:05)
[2022-03-29] MEDS: PANTOPRAZOLE 40 MG TABLET PO SCH (09:05)
[2022-03-29] MEDS: SODIUM HYPOCHLORITE 0.25% IRRIG 473 ML BOTTLE TOP SCH (09:06)
[2022-03-29] MEDS: ZINC OXIDE PASTE 113 GM TUBE TOP SCH ×2 (09:06→21:36)
[2022-03-29] MEDS: COLLAGENASE OINT 30 GM TUBE TOP SCH (13:45)
[2022-03-29] MEDS: TAMSULOSIN 0.4 MG CAPSULE PO SCH (21:28)
[2022-03-29] MEDS: LATANOPROST 0.005% OPH SOLN 2.5 ML BOTTLE BOTH EYES SCH (21:36)
[2022-03-29] MEDS: LEVOFLOXACIN INJ 250 MG/50 ML PREMIX IV SCH (22:22)
[2022-03-30] MEDS: SODIUM CHLOR 0.9% KCL 20 MEQ 20 MEQ/1,000 ML BAG IV SCH ×4 (01:00→11:01)
[2022-03-30] MEDS: AMPICILLIN INJ 2,000 MG in SODIUM CHLORIDE 0.9% 100 ML IV SCH ×4 (01:01→21:05)
[2022-03-30 06:27] LABS: Basophils % 0.1 % (0.0-0.8); Eosinophils # 0.1 10*3/uL (0.0-0.87); Eosinophils % 0.4 % (0.00-10.9); Hematocrit 23.8 VOL% (42.0-52.0); Immature Granulocytes % 0.9 %; Immature Granulocytes Absolute 0.14 #; Lymphocytes % 6.6 % (21.2-54.2); Mean Corpuscular HGB Conc 29.4 GM/DL (32-36); Mean Corpuscular Volume 87.8 FL (87-102); Mean Platelet Volume 12.4 FL (9.6-12.0); Monocytes # 0.9 10*3/uL (0.11-0.8); Monocytes % 6.3 % (1.7-12.7); Neutrophils % 85.7 % (38.7-73.9); Platelet Count 136 T/CUMM (130-400); Red Blood Count 2.71 MC/CUMM (3.8-5.5); Red Cell Distribution Width 19.2 % (9.3-17.3); White Blood Count 14.8 T/CUMM (4-12)
[2022-03-30] MEDS: ZINC OXIDE PASTE 113 GM TUBE TOP SCH ×2 (08:34→22:22)
[2022-03-30] MEDS: COLLAGENASE OINT 30 GM TUBE TOP SCH (08:43)
[2022-03-30] MEDS: SODIUM HYPOCHLORITE 0.25% IRRIG 473 ML BOTTLE TOP SCH (08:43)
[2022-03-30] MEDS: FUROSEMIDE 40 MG TABLET PO SCH (08:46)
[2022-03-30] MEDS: MULTIVITAMIN (CENTRUM) TABLET PO SCH (08:46)
[2022-03-30] MEDS: INSULIN LISPRO 100 UNIT/ML SUBCUT SCH ×3 (08:46→21:05)
[2022-03-30] MEDS: DOCUSATE SODIUM 100 MG CAPSULE PO SCH ×2 (08:46→21:05)
[2022-03-30] MEDS: PANTOPRAZOLE 40 MG TABLET PO SCH (08:46)
[2022-03-30] MEDS ORDERED: FUROSEMIDE 40 MG/4 ML VIAL IV ONE (17:23)
[2022-03-30] MEDS ORDERED: SODIUM CHLORIDE 0.9% 1,000 ML IV PRN (17:39)
[2022-03-30] MEDS: MORPHINE 2 MG/1 ML SYRINGE IV PRN (18:16)
[2022-03-30] MEDS: ALBUMIN 25% 12.5 GM/50 ML VIAL IV SCH (18:17)
[2022-03-30] MEDS: LATANOPROST 0.005% OPH SOLN 2.5 ML BOTTLE BOTH EYES SCH (21:05)
[2022-03-31] MEDS: AMPICILLIN INJ 2,000 MG in SODIUM CHLORIDE 0.9% 100 ML IV SCH ×4 (01:43→21:05)
[2022-03-31] MEDS: ALBUMIN 25% 12.5 GM/50 ML VIAL IV SCH ×3 (03:30→17:47)
[2022-03-31] MEDS: traMADol 50 MG TABLET PO PRN (04:28)
[2022-03-31 06:53] LABS: Basophils % 0.2 % (0.0-0.8); Eosinophils # 0.1 10*3/uL (0.0-0.87); Eosinophils % 0.8 % (0.00-10.9); Hematocrit 21.5 VOL% (42.0-52.0); Immature Granulocytes % 0.7 %; Immature Granulocytes Absolute 0.07 #; Lymphocytes # 0.8 10*3/uL (1.4-4.0); Lymphocytes % 8.1 % (21.2-54.2); Mean Corpuscular HGB Conc 29.3 GM/DL (32-36); Mean Platelet Volume 10.6 FL (9.6-12.0); Monocytes # 0.7 10*3/uL (0.11-0.8); Monocytes % 6.6 % (1.7-12.7); Neutrophils % 83.6 % (38.7-73.9); Platelet Count 106 T/CUMM (130-400); Red Cell Distribution Width 18.8 % (9.3-17.3)
[2022-03-31 06:59] LABS: Hemoglobin 6.3 GM/DL (14.0-18.0)
[2022-03-31] MEDS ORDERED: SODIUM CHLORIDE 0.9% 1,000 ML IV PRN (07:02)
[2022-03-31 07:37] LABS: Albumin 1.2 G/DL (3.4-5.0); Bilirubin,Total 0.5 MG/DL (0.20-1.00); Calcium 8.1 MG/DL (8.5-10.1); Phosphorous 4.2 MG/DL (2.5-4.9); Potassium 4.1 MMOL/L (3.5-5.1); Total Protein 4.8 G/DL (6.4-8.2)
[2022-03-31] MEDS: INSULIN LISPRO 100 UNIT/ML SUBCUT SCH ×4 (08:34→21:05)
[2022-03-31] MEDS: PANTOPRAZOLE 40 MG TABLET PO SCH (08:35)
[2022-03-31] MEDS: SODIUM HYPOCHLORITE 0.25% IRRIG 473 ML BOTTLE TOP SCH (08:35)
[2022-03-31] MEDS: DOCUSATE SODIUM 100 MG CAPSULE PO SCH ×2 (08:35→21:05)
[2022-03-31] MEDS: COLLAGENASE OINT 30 GM TUBE TOP SCH (08:35)
[2022-03-31] MEDS: ZINC OXIDE PASTE 113 GM TUBE TOP SCH ×2 (08:35→21:05)
[2022-03-31] MEDS: MULTIVITAMIN (CENTRUM) TABLET PO SCH (08:35)
[2022-03-31] MEDS: FUROSEMIDE 40 MG TABLET PO SCH (08:35)
[2022-03-31] MEDS: SODIUM CHLOR 0.9% KCL 20 MEQ 20 MEQ/1,000 ML BAG IV SCH ×2 (11:15→17:47)
[2022-03-31] MEDS ORDERED: FUROSEMIDE 20 MG/2 ML VIAL IV ONE (15:06)
[2022-03-31] MEDS: LATANOPROST 0.005% OPH SOLN 2.5 ML BOTTLE BOTH EYES SCH (21:06)
[2022-04-01] MEDS: AMPICILLIN INJ 2,000 MG in SODIUM CHLORIDE 0.9% 100 ML IV SCH ×4 (02:38→21:47)
[2022-04-01] MEDS: ALBUMIN 25% 12.5 GM/50 ML VIAL IV SCH ×3 (03:30→17:52)
[2022-04-01 07:01] LABS: Hematocrit 25.8 VOL% (42.0-52.0); Hemoglobin 7.9 GM/DL (14.0-18.0); Red Blood Count 3.03 MC/CUMM (3.8-5.5); White Blood Count 10.4 T/CUMM (4-12)
[2022-04-01 07:02] LABS: Basophils % 0.2 % (0.0-0.8); Eosinophils # 0.1 10*3/uL (0.0-0.87); Eosinophils % 0.5 % (0.00-10.9); Lymphocytes # 0.7 10*3/uL (1.4-4.0); Mean Corpuscular HGB Conc 30.6 GM/DL (32-36); Mean Corpuscular Volume 85.1 FL (87-102); Mean Platelet Volume 11.4 FL (9.6-12.0); Monocytes # 0.7 10*3/uL (0.11-0.8); Monocytes % 6.3 % (1.7-12.7); Platelet Count 122 T/CUMM (130-400); Red Cell Distribution Width 17.9 % (9.3-17.3)
[2022-04-01 07:25] LABS: Calcium 8.4 MG/DL (8.5-10.1); Potassium 4.2 MMOL/L (3.5-5.1)
[2022-04-01] MEDS: MULTIVITAMIN (CENTRUM) TABLET PO SCH (09:24)
[2022-04-01] MEDS: FUROSEMIDE 40 MG TABLET PO SCH (09:24)
[2022-04-01] MEDS: DOCUSATE SODIUM 100 MG CAPSULE PO SCH ×2 (09:24→21:54)
[2022-04-01] MEDS: PANTOPRAZOLE 40 MG TABLET PO SCH (09:24)
[2022-04-01] MEDS: SODIUM CHLOR 0.9% KCL 20 MEQ 20 MEQ/1,000 ML BAG IV SCH ×3 (09:32→21:54)
[2022-04-01] MEDS: INSULIN LISPRO 100 UNIT/ML SUBCUT SCH ×4 (09:36→21:46)
[2022-04-01] MEDS: SODIUM HYPOCHLORITE 0.25% IRRIG 473 ML BOTTLE TOP SCH (09:39)
[2022-04-01] MEDS: ZINC OXIDE PASTE 113 GM TUBE TOP SCH ×2 (09:40→21:53)
[2022-04-01] MEDS: COLLAGENASE OINT 30 GM TUBE TOP SCH (09:40)
[2022-04-01] MEDS: traMADol 50 MG TABLET PO PRN (14:26)
[2022-04-01] MEDS: MORPHINE 2 MG/1 ML SYRINGE IV PRN (15:50)
[2022-04-01] MEDS: LATANOPROST 0.005% OPH SOLN 2.5 ML BOTTLE BOTH EYES SCH (21:52)
[2022-04-02] MEDS: SODIUM CHLOR 0.9% KCL 20 MEQ 20 MEQ/1,000 ML BAG IV SCH ×2 (00:31→21:02)
[2022-04-02] MEDS: ALBUMIN 25% 12.5 GM/50 ML VIAL IV SCH ×3 (02:20→17:53)
[2022-04-02] MEDS: AMPICILLIN INJ 2,000 MG in SODIUM CHLORIDE 0.9% 100 ML IV SCH ×4 (02:22→21:07)
[2022-04-02 05:29] LABS: Basophils % 0.3 % (0.0-0.8); Eosinophils # 0.1 10*3/uL (0.0-0.87); Eosinophils % 0.5 % (0.00-10.9); Hematocrit 23.7 VOL% (42.0-52.0); Hemoglobin 7.3 GM/DL (14.0-18.0); Immature Granulocytes % 0.6 %; Immature Granulocytes Absolute 0.06 #; Lymphocytes # 0.7 10*3/uL (1.4-4.0); Lymphocytes % 7.5 % (21.2-54.2); Mean Corpuscular HGB Conc 30.8 GM/DL (32-36); Mean Corpuscular Volume 84.9 FL (87-102); Mean Platelet Volume 11.6 FL (9.6-12.0); Monocytes # 0.6 10*3/uL (0.11-0.8); Monocytes % 6.4 % (1.7-12.7); Neutrophils % 84.7 % (38.7-73.9); Platelet Count 115 T/CUMM (130-400); Red Blood Count 2.79 MC/CUMM (3.8-5.5); Red Cell Distribution Width 17.9 % (9.3-17.3); White Blood Count 9.4 T/CUMM (4-12)
[2022-04-02 05:51] LABS: Calcium 8.2 MG/DL (8.5-10.1); Osmolality,Calculated 315.8 MOS/KG (273-304)
[2022-04-02 07:51] LABS: Basophils % 0.3 % (0.0-0.8); Eosinophils # 0.1 10*3/uL (0.0-0.87); Eosinophils % 0.5 % (0.00-10.9); Hematocrit 23.7 VOL% (42.0-52.0); Hemoglobin 7.3 GM/DL (14.0-18.0); Immature Granulocytes % 0.6 %; Immature Granulocytes Absolute 0.06 #; Lymphocytes # 0.7 10*3/uL (1.4-4.0); Lymphocytes % 7.5 % (21.2-54.2); Mean Corpuscular HGB Conc 30.8 GM/DL (32-36); Mean Corpuscular Volume 84.9 FL (87-102); Mean Platelet Volume 11.6 FL (9.6-12.0); Monocytes # 0.6 10*3/uL (0.11-0.8); Monocytes % 6.4 % (1.7-12.7); Neutrophils % 84.7 % (38.7-73.9); Platelet Count 115 T/CUMM (130-400); Red Blood Count 2.79 MC/CUMM (3.8-5.5); Red Cell Distribution Width 17.9 % (9.3-17.3); White Blood Count 9.4 T/CUMM (4-12)
[2022-04-02 08:22] LABS: Folate 12.04 NG/ML (5.38-24.0); Vitamin B12 607 PG/ML (211-911)
[2022-04-02 08:49] LABS: Sedimentation Rate-Westergren 73 MM/HR (0-20)
[2022-04-02] MEDS: PANTOPRAZOLE 40 MG TABLET PO SCH (09:23)
[2022-04-02] MEDS: SODIUM HYPOCHLORITE 0.25% IRRIG 473 ML BOTTLE TOP SCH (09:23)
[2022-04-02] MEDS: DOCUSATE SODIUM 100 MG CAPSULE PO SCH ×2 (09:23→21:10)
[2022-04-02] MEDS: FUROSEMIDE 40 MG TABLET PO SCH (09:23)
[2022-04-02] MEDS: MULTIVITAMIN (CENTRUM) TABLET PO SCH (09:23)
[2022-04-02] MEDS: ZINC OXIDE PASTE 113 GM TUBE TOP SCH ×2 (09:23→21:10)
[2022-04-02] MEDS: COLLAGENASE OINT 30 GM TUBE TOP SCH (09:24)
[2022-04-02] MEDS: MORPHINE 2 MG/1 ML SYRINGE IV PRN (09:39)
[2022-04-02] MEDS: INSULIN LISPRO 100 UNIT/ML SUBCUT SCH ×4 (09:40→21:11)
[2022-04-02 10:59] LABS: Hemoglobin A1 (Alkaline) 97.8 % (96.5-98.5); Hemoglobin A2 (Alkaline) 2.2 % (1.5-3.5)
[2022-04-02] MEDS: LATANOPROST 0.005% OPH SOLN 2.5 ML BOTTLE BOTH EYES SCH (21:10)
[2022-04-03] MEDS: traMADol 50 MG TABLET PO PRN (00:08)
[2022-04-03] MEDS: ALBUMIN 25% 12.5 GM/50 ML VIAL IV SCH ×3 (02:04→19:05)
[2022-04-03] MEDS: AMPICILLIN INJ 2,000 MG in SODIUM CHLORIDE 0.9% 100 ML IV SCH ×4 (02:04→21:07)
[2022-04-03 05:43] LABS: Basophils % 0.4 % (0.0-0.8); Eosinophils % 0.5 % (0.00-10.9); Hemoglobin 6.8 GM/DL (14.0-18.0); Immature Granulocytes % 0.7 %; Immature Granulocytes Absolute 0.05 #; Lymphocytes # 0.8 10*3/uL (1.4-4.0); Lymphocytes % 10.2 % (21.2-54.2); Mean Corpuscular HGB Conc 30.9 GM/DL (32-36); Mean Platelet Volume 11.5 FL (9.6-12.0); Monocytes # 0.6 10*3/uL (0.11-0.8); Monocytes % 8.4 % (1.7-12.7); Neutrophils % 79.8 % (38.7-73.9); Platelet Count 116 T/CUMM (130-400); Red Blood Count 2.62 MC/CUMM (3.8-5.5); Red Cell Distribution Width 18.5 % (9.3-17.3); White Blood Count 7.4 T/CUMM (4-12)
[2022-04-03 06:00] LABS: Calcium 7.6 MG/DL (8.5-10.1); Osmolality,Calculated 319.6 MOS/KG (273-304); Potassium 4.2 MMOL/L (3.5-5.1)
[2022-04-03] MEDS ORDERED: LACTATED RINGERS 1,000 ML IV SCH (08:00)
[2022-04-03] MEDS ORDERED: LIDOCAINE 2% 5 ML VIAL ONE (08:18)
[2022-04-03] MEDS ORDERED: propofoL 200 MG/20 ML VIAL IV ONE (08:18)
[2022-04-03] MEDS ORDERED: ETOMIDATE 20 MG/10 ML VIAL IV ONE (08:18)
[2022-04-03] MEDS ORDERED: PHENYLEPHRINE 1 MG/10 ML SYRINGE IV ONE (08:33)
[2022-04-03] MEDS ORDERED: SODIUM CHLORIDE 0.9% 1,000 ML IV PRN (08:44)
[2022-04-03] MEDS: MULTIVITAMIN (CENTRUM) TABLET PO SCH (10:16)
[2022-04-03] MEDS: FUROSEMIDE 40 MG TABLET PO SCH (10:16)
[2022-04-03] MEDS: DOCUSATE SODIUM 100 MG CAPSULE PO SCH ×2 (10:16→21:01)
[2022-04-03] MEDS: PANTOPRAZOLE 40 MG TABLET PO SCH (10:16)
[2022-04-03] MEDS: ZINC OXIDE PASTE 113 GM TUBE TOP SCH ×2 (10:17→21:02)
[2022-04-03] MEDS: INSULIN LISPRO 100 UNIT/ML SUBCUT SCH ×4 (10:50→22:29)
[2022-04-03] MEDS: COLLAGENASE OINT 30 GM TUBE TOP SCH (12:40)
[2022-04-03] MEDS: SODIUM HYPOCHLORITE 0.25% IRRIG 473 ML BOTTLE TOP SCH (12:40)
[2022-04-03] MEDS: SODIUM CHLOR 0.9% KCL 20 MEQ 20 MEQ/1,000 ML BAG IV SCH ×2 (19:35→21:02)
[2022-04-03] MEDS: LATANOPROST 0.005% OPH SOLN 2.5 ML BOTTLE BOTH EYES SCH (21:02)
[2022-04-04] MEDS: AMPICILLIN INJ 2,000 MG in SODIUM CHLORIDE 0.9% 100 ML IV SCH ×4 (02:29→20:30)
[2022-04-04] MEDS: ALBUMIN 25% 12.5 GM/50 ML VIAL IV SCH ×3 (02:29→17:38)
[2022-04-04 05:36] LABS: Basophils % 0.3 % (0.0-0.8); Eosinophils # 0.1 10*3/uL (0.0-0.87); Eosinophils % 0.7 % (0.00-10.9); Hematocrit 27.9 VOL% (42.0-52.0); Hemoglobin 8.7 GM/DL (14.0-18.0); Immature Granulocytes % 0.7 %; Immature Granulocytes Absolute 0.05 #; Lymphocytes # 0.7 10*3/uL (1.4-4.0); Lymphocytes % 8.9 % (21.2-54.2); Mean Corpuscular HGB Conc 31.2 GM/DL (32-36); Mean Corpuscular Volume 85.6 FL (87-102); Mean Platelet Volume 12.4 FL (9.6-12.0); Monocytes # 0.6 10*3/uL (0.11-0.8); Monocytes % 7.6 % (1.7-12.7); Neutrophils % 81.8 % (38.7-73.9); Platelet Count 111 T/CUMM (130-400); Red Blood Count 3.26 MC/CUMM (3.8-5.5); Red Cell Distribution Width 17.5 % (9.3-17.3); White Blood Count 7.3 T/CUMM (4-12)
[2022-04-04 05:59] LABS: Calcium 8.3 MG/DL (8.5-10.1); Osmolality,Calculated 325.3 MOS/KG (273-304); Potassium 3.1 MMOL/L (3.5-5.1)
[2022-04-04 06:01] LABS: Lymphocytes 10 % (20-55); Total Cells Counted 100
[2022-04-04] MEDS: FUROSEMIDE 40 MG TABLET PO SCH (09:12)
[2022-04-04] MEDS: INSULIN LISPRO 100 UNIT/ML SUBCUT SCH ×4 (09:12→20:25)
[2022-04-04] MEDS: PANTOPRAZOLE 40 MG TABLET PO SCH (09:12)
[2022-04-04] MEDS: MULTIVITAMIN (CENTRUM) TABLET PO SCH (09:12)
[2022-04-04] MEDS: POTASSIUM CHLORIDE 10 MEQ TABLET PO SCH ×2 (09:12→20:24)
[2022-04-04] MEDS: POTASSIUM CHLORIDE RIDER 10 MEQ/100 ML PREMIX IV SCH ×2 (09:12→10:45)
[2022-04-04] MEDS: COLLAGENASE OINT 30 GM TUBE TOP SCH (09:13)
[2022-04-04] MEDS: ZINC OXIDE PASTE 113 GM TUBE TOP SCH ×2 (09:13→20:30)
[2022-04-04] MEDS: DOCUSATE SODIUM 100 MG CAPSULE PO SCH ×2 (09:13→20:25)
[2022-04-04] MEDS: SODIUM HYPOCHLORITE 0.25% IRRIG 473 ML BOTTLE TOP SCH (09:13)
[2022-04-04] MEDS: SODIUM CHLOR 0.9% KCL 20 MEQ 20 MEQ/1,000 ML BAG IV SCH (13:35)
[2022-04-04] MEDS: LATANOPROST 0.005% OPH SOLN 2.5 ML BOTTLE BOTH EYES SCH (20:30)
[2022-04-05] MEDS: ALBUMIN 25% 12.5 GM/50 ML VIAL IV SCH ×3 (01:42→18:32)
[2022-04-05] MEDS: AMPICILLIN INJ 2,000 MG in SODIUM CHLORIDE 0.9% 100 ML IV SCH ×4 (02:42→20:39)
[2022-04-05] MEDS: ACETAMINOPHEN 325 MG TABLET PO PRN (03:46)
[2022-04-05 05:17] LABS: Basophils % 0.2 % (0.0-0.8); Eosinophils # 0.1 10*3/uL (0.0-0.87); Eosinophils % 0.6 % (0.00-10.9); Hematocrit 27.4 VOL% (42.0-52.0); Hemoglobin 8.5 GM/DL (14.0-18.0); Immature Granulocytes % 0.6 %; Immature Granulocytes Absolute 0.05 #; Lymphocytes # 0.8 10*3/uL (1.4-4.0); Lymphocytes % 9.4 % (21.2-54.2); Mean Corpuscular Volume 85.4 FL (87-102); Mean Platelet Volume 11.5 FL (9.6-12.0); Monocytes # 0.6 10*3/uL (0.11-0.8); Monocytes % 7.1 % (1.7-12.7); Neutrophils % 82.1 % (38.7-73.9); Platelet Count 97 T/CUMM (130-400); Red Blood Count 3.21 MC/CUMM (3.8-5.5); Red Cell Distribution Width 17.6 % (9.3-17.3); White Blood Count 8.7 T/CUMM (4-12)
[2022-04-05 05:31] LABS: Calcium 8.2 MG/DL (8.5-10.1); Osmolality,Calculated 321.3 MOS/KG (273-304); Potassium 3.4 MMOL/L (3.5-5.1)
[2022-04-05 05:40] LABS: Eosinophils 2 % (0-10); Lymphocytes 10 % (20-55); Platelet Estimate Decreased; Total Cells Counted 100
[2022-04-05] MEDS: INSULIN LISPRO 100 UNIT/ML SUBCUT SCH ×4 (09:33→20:44)
[2022-04-05] MEDS ORDERED: KETAMINE 500 MG/10 ML VIAL ONE (09:41)
[2022-04-05] MEDS ORDERED: LACTATED RINGERS 1,000 ML IV SCH (10:00)
[2022-04-05] MEDS ORDERED: DEXMEDETOMIDINE 200 MCG/2 ML VIAL ONE (10:31)
[2022-04-05] MEDS ORDERED: PHENYLEPHRINE 1 MG/10 ML SYRINGE IV ONE (10:31)
[2022-04-05] MEDS: PANTOPRAZOLE 40 MG TABLET PO SCH (12:13)
[2022-04-05] MEDS: FUROSEMIDE 40 MG TABLET PO SCH (12:13)
[2022-04-05] MEDS: MULTIVITAMIN (CENTRUM) TABLET PO SCH (12:13)
[2022-04-05] MEDS: POTASSIUM CHLORIDE 10 MEQ TABLET PO SCH ×2 (12:14→20:45)
[2022-04-05] MEDS: DOCUSATE SODIUM 100 MG CAPSULE PO SCH ×2 (12:16→20:45)
[2022-04-05] MEDS: POTASSIUM CHLORIDE RIDER 10 MEQ/100 ML PREMIX IV SCH ×2 (12:20→13:20)
[2022-04-05] MEDS: SODIUM HYPOCHLORITE 0.25% IRRIG 473 ML BOTTLE TOP SCH (12:27)
[2022-04-05] MEDS: ZINC OXIDE PASTE 113 GM TUBE TOP SCH ×2 (12:27→20:44)
[2022-04-05] MEDS: COLLAGENASE OINT 30 GM TUBE TOP SCH (12:29)
[2022-04-05] MEDS: MORPHINE 2 MG/1 ML SYRINGE IV PRN (16:25)
[2022-04-05] MEDS: LATANOPROST 0.005% OPH SOLN 2.5 ML BOTTLE BOTH EYES SCH (20:45)
[2022-04-06] MEDS: ALBUMIN 25% 12.5 GM/50 ML VIAL IV SCH ×3 (01:52→17:32)
[2022-04-06] MEDS: AMPICILLIN INJ 2,000 MG in SODIUM CHLORIDE 0.9% 100 ML IV SCH ×4 (02:30→20:59)
[2022-04-06 05:36] LABS: Basophils % 0.2 % (0.0-0.8); Eosinophils # 0.1 10*3/uL (0.0-0.87); Hematocrit 25.7 VOL% (42.0-52.0); Hemoglobin 7.7 GM/DL (14.0-18.0); Immature Granulocytes % 0.7 %; Immature Granulocytes Absolute 0.06 #; Lymphocytes # 0.6 10*3/uL (1.4-4.0); Lymphocytes % 6.7 % (21.2-54.2); Mean Corpuscular Volume 88.6 FL (87-102); Monocytes # 0.5 10*3/uL (0.11-0.8); Monocytes % 6.1 % (1.7-12.7); Neutrophils % 85.3 % (38.7-73.9); Platelet Count 106 T/CUMM (130-400); Red Cell Distribution Width 18.1 % (9.3-17.3); White Blood Count 8.2 T/CUMM (4-12)
[2022-04-06 06:02] LABS: Albumin 1.7 G/DL (3.4-5.0); Bilirubin,Total 0.8 MG/DL (0.20-1.00); Calcium 8.4 MG/DL (8.5-10.1); Osmolality,Calculated 315.3 MOS/KG (273-304); Potassium 3.4 MMOL/L (3.5-5.1); Total Protein 4.9 G/DL (6.4-8.2)
[2022-04-06 06:09] LABS: Band Neutrophils 3 % (0-10); Hypochromia 1+; Lymphocytes 5 % (20-55); Platelet Estimate Adequate; Total Cells Counted 100
[2022-04-06] MEDS: INSULIN LISPRO 100 UNIT/ML SUBCUT SCH ×4 (07:51→20:43)
[2022-04-06] MEDS: ZINC OXIDE PASTE 113 GM TUBE TOP SCH ×2 (09:23→20:58)
[2022-04-06] MEDS: COLLAGENASE OINT 30 GM TUBE TOP SCH (09:23)
[2022-04-06] MEDS: SODIUM HYPOCHLORITE 0.25% IRRIG 473 ML BOTTLE TOP SCH (09:23)
[2022-04-06] MEDS: POTASSIUM CHLORIDE 10 MEQ TABLET PO SCH ×2 (09:24→20:57)
[2022-04-06] MEDS: PANTOPRAZOLE 40 MG TABLET PO SCH (09:24)
[2022-04-06] MEDS: MULTIVITAMIN (CENTRUM) TABLET PO SCH (09:24)
[2022-04-06] MEDS: DOCUSATE SODIUM 100 MG/10 ML UDCUP PO SCH ×2 (09:25→20:57)
[2022-04-06] MEDS: FUROSEMIDE 40 MG TABLET PO SCH (09:25)
[2022-04-06] MEDS: CIPROFLOXACIN INJ 200 MG/100 ML PREMIX IV SCH ×2 (10:44→21:50)
[2022-04-06] MEDS: MORPHINE 2 MG/1 ML SYRINGE IV PRN (14:57)
[2022-04-06] MEDS: LATANOPROST 0.005% OPH SOLN 2.5 ML BOTTLE BOTH EYES SCH (20:57)
[2022-04-07] MEDS: ALBUMIN 25% 12.5 GM/50 ML VIAL IV SCH ×2 (02:59→10:42)
[2022-04-07] MEDS: AMPICILLIN INJ 2,000 MG in SODIUM CHLORIDE 0.9% 100 ML IV SCH ×4 (03:40→21:51)
[2022-04-07] MEDS: INSULIN LISPRO 100 UNIT/ML SUBCUT SCH ×4 (07:42→21:51)
[2022-04-07] MEDS: POTASSIUM CHLORIDE 10 MEQ TABLET PO SCH ×2 (08:50→21:52)
[2022-04-07] MEDS: DOCUSATE SODIUM 100 MG/10 ML UDCUP PO SCH ×2 (08:50→21:51)
[2022-04-07] MEDS: PANTOPRAZOLE 40 MG TABLET PO SCH (08:50)
[2022-04-07] MEDS: MULTIVITAMIN (CENTRUM) TABLET PO SCH (08:50)
[2022-04-07] MEDS: FUROSEMIDE 40 MG TABLET PO SCH (08:50)
[2022-04-07] MEDS: COLLAGENASE OINT 30 GM TUBE TOP SCH (08:51)
[2022-04-07] MEDS: SODIUM HYPOCHLORITE 0.25% IRRIG 473 ML BOTTLE TOP SCH (08:51)
[2022-04-07] MEDS: ZINC OXIDE PASTE 113 GM TUBE TOP SCH ×2 (08:51→21:51)
[2022-04-07] MEDS: CIPROFLOXACIN INJ 200 MG/100 ML PREMIX IV SCH ×2 (09:30→21:52)
[2022-04-07] MEDS: LATANOPROST 0.005% OPH SOLN 2.5 ML BOTTLE BOTH EYES SCH (21:52)
[2022-04-08] MEDS: AMPICILLIN INJ 2,000 MG in SODIUM CHLORIDE 0.9% 100 ML IV SCH ×2 (02:01→08:16)
[2022-04-08 05:35] LABS: Calcium 8.2 MG/DL (8.5-10.1); Osmolality,Calculated 316.6 MOS/KG (273-304); Potassium 3.6 MMOL/L (3.5-5.1)
[2022-04-08] MEDS: SODIUM HYPOCHLORITE 0.25% IRRIG 473 ML BOTTLE TOP SCH (08:17)
[2022-04-08] MEDS: MULTIVITAMIN (CENTRUM) TABLET PO SCH (08:17)
[2022-04-08] MEDS: DOCUSATE SODIUM 100 MG/10 ML UDCUP PO SCH ×2 (08:17→21:15)
[2022-04-08] MEDS: POTASSIUM CHLORIDE 10 MEQ TABLET PO SCH ×2 (08:17→21:15)
[2022-04-08] MEDS: ZINC OXIDE PASTE 113 GM TUBE TOP SCH ×2 (08:17→21:18)
[2022-04-08] MEDS: FUROSEMIDE 40 MG TABLET PO SCH (08:17)
[2022-04-08] MEDS: PANTOPRAZOLE 40 MG TABLET PO SCH (08:17)
[2022-04-08] MEDS: INSULIN LISPRO 100 UNIT/ML SUBCUT SCH ×4 (08:17→21:18)
[2022-04-08] MEDS: COLLAGENASE OINT 30 GM TUBE TOP SCH (08:17)
[2022-04-08 09:07] LABS: Basophils % 0.2 % (0.0-0.8); Eosinophils # 0.1 10*3/uL (0.0-0.87); Eosinophils % 1.4 % (0.00-10.9); Hematocrit 31.1 VOL% (42.0-52.0); Immature Granulocytes % 0.9 %; Immature Granulocytes Absolute 0.09 #; Lymphocytes # 0.9 10*3/uL (1.4-4.0); Lymphocytes % 9.3 % (21.2-54.2); Mean Corpuscular HGB Conc 30.5 GM/DL (32-36); Mean Corpuscular Volume 86.1 FL (87-102); Monocytes # 0.3 10*3/uL (0.11-0.8); Monocytes % 3.6 % (1.7-12.7); Neutrophils % 84.6 % (38.7-73.9); Platelet Count 112 T/CUMM (130-400); Red Blood Count 3.61 MC/CUMM (3.8-5.5); Red Cell Distribution Width 18.3 % (9.3-17.3); White Blood Count 9.5 T/CUMM (4-12)
[2022-04-08 09:09] LABS: Hemoglobin 9.5 GM/DL (14.0-18.0)
[2022-04-08] MEDS: CIPROFLOXACIN INJ 200 MG/100 ML PREMIX IV SCH ×2 (09:22→21:17)
[2022-04-08 09:30] LABS: Band Neutrophils 21 % (0-10); Eosinophils 2 % (0-10); Lymphocytes 4 % (20-55); Platelet Estimate Decreased; Total Cells Counted 100
[2022-04-08 09:31] LABS: Anisocytosis Slight; Hypochromia Slight
[2022-04-08 09:32] LABS: Acanthocytes Few; Poikilocytosis 1+
[2022-04-08] MEDS: LATANOPROST 0.005% OPH SOLN 2.5 ML BOTTLE BOTH EYES SCH (21:14)
[2022-04-08] MEDS: ACETAMINOPHEN 325 MG TABLET PO PRN (21:16)
[2022-04-08] MEDS: MORPHINE 2 MG/1 ML SYRINGE IV PRN (23:27)
[2022-04-09 05:29] LABS: Basophils % 0.2 % (0.0-0.8); Eosinophils # 0.1 10*3/uL (0.0-0.87); Eosinophils % 1.1 % (0.00-10.9); Hematocrit 24.5 VOL% (42.0-52.0); Hemoglobin 7.6 GM/DL (14.0-18.0); Immature Granulocytes % 1.1 %; Immature Granulocytes Absolute 0.12 #; Lymphocytes # 0.9 10*3/uL (1.4-4.0); Lymphocytes % 8.2 % (21.2-54.2); Mean Corpuscular Volume 86.3 FL (87-102); Mean Platelet Volume 11.9 FL (9.6-12.0); Monocytes # 0.6 10*3/uL (0.11-0.8); Monocytes % 5.6 % (1.7-12.7); Neutrophils % 83.8 % (38.7-73.9); Platelet Count 101 T/CUMM (130-400); Red Blood Count 2.84 MC/CUMM (3.8-5.5); Red Cell Distribution Width 18.4 % (9.3-17.3); White Blood Count 10.5 T/CUMM (4-12)
[2022-04-09 05:54] LABS: Calcium 8.3 MG/DL (8.5-10.1); Osmolality,Calculated 308.6 MOS/KG (273-304); Potassium 3.3 MMOL/L (3.5-5.1)
[2022-04-09 05:57] LABS: Band Neutrophils 9 % (0-10); Hypochromia Slight; Lymphocytes 3 % (20-55); Metamyelocytes 1 %; Total Cells Counted 100
[2022-04-09 05:58] LABS: Microcytosis 1+
[2022-04-09 05:59] LABS: Platelet Estimate Decreased
[2022-04-09] MEDS: POTASSIUM CHLORIDE RIDER 10 MEQ/100 ML PREMIX IV SCH ×3 (07:58→11:59)
[2022-04-09] MEDS: POTASSIUM CHLORIDE 10 MEQ TABLET PO SCH ×2 (08:42→20:52)
[2022-04-09] MEDS: PANTOPRAZOLE 40 MG TABLET PO SCH (08:42)
[2022-04-09] MEDS: MULTIVITAMIN (CENTRUM) TABLET PO SCH (08:42)
[2022-04-09] MEDS: FUROSEMIDE 40 MG TABLET PO SCH (08:42)
[2022-04-09] MEDS: DOCUSATE SODIUM 100 MG/10 ML UDCUP PO SCH ×2 (08:42→20:52)
[2022-04-09] MEDS: INSULIN LISPRO 100 UNIT/ML SUBCUT SCH ×4 (09:00→20:52)
[2022-04-09] MEDS: CIPROFLOXACIN INJ 200 MG/100 ML PREMIX IV SCH ×2 (09:13→21:40)
[2022-04-09] MEDS: SODIUM HYPOCHLORITE 0.25% IRRIG 473 ML BOTTLE TOP SCH (16:01)
[2022-04-09] MEDS: ZINC OXIDE PASTE 113 GM TUBE TOP SCH ×2 (16:02→20:53)
[2022-04-09] MEDS: COLLAGENASE OINT 30 GM TUBE TOP SCH (16:02)
[2022-04-09] MEDS: LATANOPROST 0.005% OPH SOLN 2.5 ML BOTTLE BOTH EYES SCH (20:53)
[2022-04-10 05:46] LABS: Calcium 8.3 MG/DL (8.5-10.1); Potassium 3.4 MMOL/L (3.5-5.1)
[2022-04-10 07:10] LABS: Basophils % 0.2 % (0.0-0.8); Eosinophils # 0.2 10*3/uL (0.0-0.87); Eosinophils % 1.6 % (0.00-10.9); Hematocrit 22.8 VOL% (42.0-52.0); Hemoglobin 7.2 GM/DL (14.0-18.0); Lymphocytes # 0.7 10*3/uL (1.4-4.0); Mean Corpuscular HGB Conc 31.6 GM/DL (32-36); Mean Corpuscular Volume 85.4 FL (87-102); Monocytes # 0.5 10*3/uL (0.11-0.8); Monocytes % 4.6 % (1.7-12.7); Neutrophils % 85.6 % (38.7-73.9); Platelet Count 102 T/CUMM (130-400); Red Blood Count 2.67 MC/CUMM (3.8-5.5); Red Cell Distribution Width 18.4 % (9.3-17.3); White Blood Count 10.5 T/CUMM (4-12)
[2022-04-10 07:31] LABS: Band Neutrophils 2 % (0-10); Eosinophils 1 % (0-10); Lymphocytes 7 % (20-55); Total Cells Counted 100
[2022-04-10 07:32] LABS: Hypochromia Slight; Microcytosis Slight
[2022-04-10] MEDS: COLLAGENASE OINT 30 GM TUBE TOP SCH (10:35)
[2022-04-10] MEDS: INSULIN LISPRO 100 UNIT/ML SUBCUT SCH ×4 (10:35→22:22)
[2022-04-10] MEDS: POTASSIUM CHLORIDE 20 MEQ TABLET PO SCH ×2 (10:36→22:23)
[2022-04-10] MEDS: DOCUSATE SODIUM 100 MG/10 ML UDCUP PO SCH ×2 (10:36→22:22)
[2022-04-10] MEDS: SODIUM HYPOCHLORITE 0.25% IRRIG 473 ML BOTTLE TOP SCH (10:36)
[2022-04-10] MEDS: PANTOPRAZOLE 40 MG TABLET PO SCH (10:36)
[2022-04-10] MEDS: MULTIVITAMIN (CENTRUM) TABLET PO SCH (10:36)
[2022-04-10] MEDS: FUROSEMIDE 40 MG TABLET PO SCH (10:36)
[2022-04-10] MEDS: ZINC OXIDE PASTE 113 GM TUBE TOP SCH ×2 (10:37→22:23)
[2022-04-10] MEDS: CIPROFLOXACIN INJ 200 MG/100 ML PREMIX IV SCH ×2 (10:44→22:23)
[2022-04-10] MEDS: LATANOPROST 0.005% OPH SOLN 2.5 ML BOTTLE BOTH EYES SCH (22:22)
[2022-04-10] MEDS: traMADol 50 MG TABLET PO PRN (22:22)
[2022-04-11 05:34] LABS: Calcium 8.2 MG/DL (8.5-10.1); Osmolality,Calculated 311.1 MOS/KG (273-304); Potassium 4.1 MMOL/L (3.5-5.1)
[2022-04-11] MEDS: SODIUM HYPOCHLORITE 0.25% IRRIG 473 ML BOTTLE TOP SCH (09:36)
[2022-04-11] MEDS: PANTOPRAZOLE 40 MG TABLET PO SCH (09:36)
[2022-04-11] MEDS: MULTIVITAMIN (CENTRUM) TABLET PO SCH (09:36)
[2022-04-11] MEDS: INSULIN LISPRO 100 UNIT/ML SUBCUT SCH ×4 (09:36→22:35)
[2022-04-11] MEDS: POTASSIUM CHLORIDE 20 MEQ TABLET PO SCH ×2 (09:36→21:36)
[2022-04-11] MEDS: FUROSEMIDE 40 MG TABLET PO SCH (09:36)
[2022-04-11] MEDS: DOCUSATE SODIUM 100 MG/10 ML UDCUP PO SCH ×2 (09:36→21:36)
[2022-04-11] MEDS: COLLAGENASE OINT 30 GM TUBE TOP SCH (09:37)
[2022-04-11] MEDS: ZINC OXIDE PASTE 113 GM TUBE TOP SCH ×2 (09:37→21:37)
[2022-04-11] MEDS: CIPROFLOXACIN INJ 200 MG/100 ML PREMIX IV SCH ×2 (09:38→21:37)
[2022-04-11] MEDS: MORPHINE 2 MG/1 ML SYRINGE IV PRN (18:39)
[2022-04-11] MEDS: LATANOPROST 0.005% OPH SOLN 2.5 ML BOTTLE BOTH EYES SCH (21:37)
[2022-04-12 06:04] LABS: Calcium 8.2 MG/DL (8.5-10.1); Osmolality,Calculated 313.6 MOS/KG (273-304); Potassium 3.9 MMOL/L (3.5-5.1)
[2022-04-12] MEDS: INSULIN LISPRO 100 UNIT/ML SUBCUT SCH ×3 (10:33→21:35)
[2022-04-12] MEDS: DOCUSATE SODIUM 100 MG/10 ML UDCUP PO SCH ×2 (10:34→21:35)
[2022-04-12] MEDS: POTASSIUM CHLORIDE 20 MEQ TABLET PO SCH ×2 (10:34→21:34)
[2022-04-12] MEDS: SODIUM HYPOCHLORITE 0.25% IRRIG 473 ML BOTTLE TOP SCH (10:34)
[2022-04-12] MEDS: PANTOPRAZOLE 40 MG TABLET PO SCH (10:34)
[2022-04-12] MEDS: FUROSEMIDE 40 MG TABLET PO SCH (10:34)
[2022-04-12] MEDS: MULTIVITAMIN (CENTRUM) TABLET PO SCH (10:34)
[2022-04-12] MEDS: ZINC OXIDE PASTE 113 GM TUBE TOP SCH ×2 (10:35→21:35)
[2022-04-12] MEDS: CIPROFLOXACIN INJ 200 MG/100 ML PREMIX IV SCH ×2 (10:35→21:34)
[2022-04-12] MEDS: COLLAGENASE OINT 30 GM TUBE TOP SCH (10:35)
[2022-04-12] MEDS: MORPHINE 2 MG/1 ML SYRINGE IV PRN (18:13)
[2022-04-12] MEDS: traMADol 50 MG TABLET PO PRN (21:34)
[2022-04-12] MEDS: LATANOPROST 0.005% OPH SOLN 2.5 ML BOTTLE BOTH EYES SCH (21:35)
[2022-04-13 06:08] LABS: Calcium 8.2 MG/DL (8.5-10.1); Osmolality,Calculated 314.6 MOS/KG (273-304); Potassium 4.3 MMOL/L (3.5-5.1)
[2022-04-13] MEDS: MULTIVITAMIN (CENTRUM) TABLET PO SCH (11:11)
[2022-04-13] MEDS: DOCUSATE SODIUM 100 MG/10 ML UDCUP PO SCH ×2 (11:11→20:46)
[2022-04-13] MEDS: POTASSIUM CHLORIDE 20 MEQ TABLET PO SCH ×2 (11:12→20:46)
[2022-04-13] MEDS: CIPROFLOXACIN INJ 200 MG/100 ML PREMIX IV SCH (11:12)
[2022-04-13] MEDS: PANTOPRAZOLE 40 MG TABLET PO SCH (11:12)
[2022-04-13] MEDS: FUROSEMIDE 40 MG TABLET PO SCH (11:12)
[2022-04-13] MEDS: INSULIN LISPRO 100 UNIT/ML SUBCUT SCH ×4 (15:19→20:47)
[2022-04-13] MEDS: SODIUM HYPOCHLORITE 0.25% IRRIG 473 ML BOTTLE TOP SCH (15:20)
[2022-04-13] MEDS: ZINC OXIDE PASTE 113 GM TUBE TOP SCH ×2 (15:20→20:47)
[2022-04-13] MEDS: COLLAGENASE OINT 30 GM TUBE TOP SCH (15:20)
[2022-04-13] MEDS: LATANOPROST 0.005% OPH SOLN 2.5 ML BOTTLE BOTH EYES SCH (20:46)
[2022-04-14] MEDS: SODIUM HYPOCHLORITE 0.25% IRRIG 473 ML BOTTLE TOP SCH (08:35)
[2022-04-14] MEDS: ZINC OXIDE PASTE 113 GM TUBE TOP SCH ×2 (08:35→21:49)
[2022-04-14] MEDS: PANTOPRAZOLE 40 MG TABLET PO SCH (08:35)
[2022-04-14] MEDS: DOCUSATE SODIUM 100 MG/10 ML UDCUP PO SCH ×2 (08:35→21:48)
[2022-04-14] MEDS: FUROSEMIDE 40 MG TABLET PO SCH (08:35)
[2022-04-14] MEDS: POTASSIUM CHLORIDE 20 MEQ TABLET PO SCH ×2 (08:35→21:48)
[2022-04-14] MEDS: INSULIN LISPRO 100 UNIT/ML SUBCUT SCH ×4 (08:35→21:49)
[2022-04-14] MEDS: MULTIVITAMIN (CENTRUM) TABLET PO SCH (08:35)
[2022-04-14] MEDS: COLLAGENASE OINT 30 GM TUBE TOP SCH (08:36)
[2022-04-14] MEDS: LATANOPROST 0.005% OPH SOLN 2.5 ML BOTTLE BOTH EYES SCH (21:49)
[2022-04-15] MEDS: INSULIN LISPRO 100 UNIT/ML SUBCUT SCH ×4 (09:02→22:04)
[2022-04-15] MEDS: MULTIVITAMIN (CENTRUM) TABLET PO SCH (09:04)
[2022-04-15] MEDS: DOCUSATE SODIUM 100 MG/10 ML UDCUP PO SCH ×2 (09:06→21:04)
[2022-04-15] MEDS: POTASSIUM CHLORIDE 20 MEQ TABLET PO SCH ×2 (09:07→21:04)
[2022-04-15] MEDS: COLLAGENASE OINT 30 GM TUBE TOP SCH (09:08)
[2022-04-15] MEDS: ZINC OXIDE PASTE 113 GM TUBE TOP SCH ×2 (09:08→21:04)
[2022-04-15] MEDS: SODIUM HYPOCHLORITE 0.25% IRRIG 473 ML BOTTLE TOP SCH (09:08)
[2022-04-15] MEDS: FUROSEMIDE 40 MG TABLET PO SCH (09:08)
[2022-04-15] MEDS: PANTOPRAZOLE 40 MG TABLET PO SCH (09:08)
[2022-04-15] MEDS: LATANOPROST 0.005% OPH SOLN 2.5 ML BOTTLE BOTH EYES SCH (21:05)
[2022-04-15] MEDS: traMADol 50 MG TABLET PO PRN (21:05)
[2022-04-15] MEDS: ACETAMINOPHEN 325 MG TABLET PO PRN (21:05)
[2022-04-16] MEDS: INSULIN LISPRO 100 UNIT/ML SUBCUT SCH ×4 (08:48→21:57)
[2022-04-16] MEDS: MULTIVITAMIN (CENTRUM) TABLET PO SCH (16:29)
[2022-04-16] MEDS: DOCUSATE SODIUM 100 MG/10 ML UDCUP PO SCH ×2 (16:30→21:21)
[2022-04-16] MEDS: PANTOPRAZOLE 40 MG TABLET PO SCH (16:31)
[2022-04-16] MEDS: FUROSEMIDE 40 MG TABLET PO SCH (16:31)
[2022-04-16] MEDS: POTASSIUM CHLORIDE 20 MEQ TABLET PO SCH ×2 (16:31→21:22)
[2022-04-16] MEDS ORDERED: MORPHINE 2 MG/1 ML SYRINGE IV PRN (16:35)
[2022-04-16] MEDS: SODIUM HYPOCHLORITE 0.25% IRRIG 473 ML BOTTLE TOP SCH (17:56)
[2022-04-16] MEDS: ZINC OXIDE PASTE 113 GM TUBE TOP SCH ×2 (17:56→21:56)
[2022-04-16] MEDS: COLLAGENASE OINT 30 GM TUBE TOP SCH (17:56)
[2022-04-16] MEDS: LATANOPROST 0.005% OPH SOLN 2.5 ML BOTTLE BOTH EYES SCH (21:56)
[2022-04-17] MEDS: ZINC OXIDE PASTE 113 GM TUBE TOP SCH ×2 (09:54→21:22)
[2022-04-17] MEDS: SODIUM HYPOCHLORITE 0.25% IRRIG 473 ML BOTTLE TOP SCH (09:54)
[2022-04-17] MEDS: MULTIVITAMIN (CENTRUM) TABLET PO SCH (09:54)
[2022-04-17] MEDS: DOCUSATE SODIUM 100 MG/10 ML UDCUP PO SCH ×2 (09:54→21:22)
[2022-04-17] MEDS: PANTOPRAZOLE 40 MG TABLET PO SCH (09:55)
[2022-04-17] MEDS: POTASSIUM CHLORIDE 20 MEQ TABLET PO SCH ×2 (09:55→21:22)
[2022-04-17] MEDS: COLLAGENASE OINT 30 GM TUBE TOP SCH (09:55)
[2022-04-17] MEDS: FUROSEMIDE 40 MG TABLET PO SCH (09:55)
[2022-04-17] MEDS: LATANOPROST 0.005% OPH SOLN 2.5 ML BOTTLE BOTH EYES SCH (21:22)
[2022-04-18 09:16] VITALS: BP 48/24
== END 2022-04-18 09:24 | disposition expired | DRG 264 ==
LOC: EDUNIT# → EDBD → N.ED 08:02 → N.EDINP 10:17 → N.5E 15:29
PROVIDERS: ADMIT Family Medicine; ATTEND Family Medicine